=== PATIENT | male | born 1955 | race Caucasian/White ===

== ENCOUNTER 2018-06-30 22:30 | Observation (INO) | payer MEDICAID, SELFPAY ==
[2018-06-30 22:32] VITALS: BP 137/65; PULSE 69; RESP 15; TEMP 36.8; BMI 32.8
--- NOTE | 2018-06-30 23:05 | ED.VISSUMM ---
- ER Visit Summary Date of Service: 06/30/18 Chief Complaint: Accidental administration of insulin History of Present Illness: The patient is a 62 M here with spouse after accidental administration of short acting insulin 10 PM, 1 hour ago. Patient on proceed with a long-acting of 50 units at night, takes NovoLog sliding scale 2-4 units before each meal. Spouse accidentally gave short acting instead of long-acting. His last meal was at 6:30 PM. There was no sliding scale given at that time. After coming emergency department, came nausea and sweaty. No tremors. Diabetic for last 20 years. Physical Examination: General: Alert and oriented ?3, no acute distress, mild clammy skin HEENT: Normocephalic, atraumatic. Moist mucosa membranes Neck: supple, nontender. Cardiovascular: Regular rate and rhythm, no murmurs Respiratory: Normal breath sounds, symmetric, no distress Abdomen: Soft, nontender, nondistended Extremities: Nontender, no edema, pulses intact ?4 Neuro: no focal neurological deficits. Test Results: Blood glucose: 29 CBC, BMP pending Emergency Department Course and Treatment: Patient was given 2 juices after findings of blood glucose. With the administration of medications only an hour ago, medication not peak. Order for Glucovance subcu 1 mg along with IV D50 after was established. He will have frequent glucose rechecks. Regular meal will be ordered. He does not take any oral medications. Patient monitored given oral fluids, p.o. meal with a sandwich, multiple recheck and continued to trend down. Last check was 47, given additional D50 along was started on D10 drip. Spent over 3 hours in the emergency department try to control his glucose, however it continues to trend down. He is now on oral medications. With persistent hypoglycemia do feel now he will require inpatient management. Spoke with Dr. Kline hospitalist who agrees. He will be placed in ICU for close monitoring. Treatment Plan: [] Disposition: Admission Impression: 1. Persistent hypoglycemia 2. Accidental insulin administration This note was generated with [employer] software. It may contain incorrect words, spelling, and punctuation that were not noted in review of the chart prior to signing ED Disposition - Plan for ED Patient: Disposition: Acute Care Hospital [facility] Chief Complaint: General Illness Diagnosis: Hypoglycemia, Accidental medication administration
[2018-06-30] MEDS: Dextrose 50%-Water 25 GM/50 ML DISP.SYRIN IV (23:07)
--- NOTE | 2018-06-30 23:08 | ED.DCSUM_ITS ---
- ER Visit Summary Date of Service: 06/30/18 Chief Complaint: Accidental administration of insulin History of Present Illness: The patient is a 62 M here with spouse after accidental administration of short acting insulin 10 PM, 1 hour ago. Patient on proceed with a long-acting of 50 units at night, takes NovoLog sliding scale 2-4 units before each meal. Spouse accidentally gave short acting instead of long-acting. His last meal was at 6:30 PM. There was no sliding scale given at that time. After coming emergency department, came nausea and sweaty. No tremors. Diabetic for last 20 years. Physical Examination: General: Alert and oriented ?3, no acute distress, mild clammy skin HEENT: Normocephalic, atraumatic. Moist mucosa membranes Neck: supple, nontender. Cardiovascular: Regular rate and rhythm, no murmurs Respiratory: Normal breath sounds, symmetric, no distress Abdomen: Soft, nontender, nondistended Extremities: Nontender, no edema, pulses intact ?4 Neuro: no focal neurological deficits. Test Results: Blood glucose: 29 CBC, BMP pending Emergency Department Course and Treatment: Patient was given 2 juices after findings of blood glucose. With the administration of medications only an hour ago, medication not peak. Order for Glucovance subcu 1 mg along with IV D50 after was established. He will have frequent glucose rechecks. Regular meal will be ordered. He does not take any oral medications. Patient monitored given oral fluids, p.o. meal with a sandwich, multiple recheck and continued to trend down. Last check was 47, given additional D50 along was started on D10 drip. Spent over 3 hours in the emergency department try to control his glucose, however it continues to trend down. He is now on oral medications. With persistent hypoglycemia do feel now he will require inpatient management. Spoke with Dr. Kline hospitalist who agrees. He will be placed in ICU for close monitoring. Treatment Plan: [] Disposition: Admission Impression: 1. Persistent hypoglycemia 2. Accidental insulin administration This note was generated with [employer] software. It may contain incorrect words, spelling, and punctuation that were not noted in review of the chart prior to signing ED Disposition - Plan for ED Patient: Disposition: Acute Care Hospital [facility] Chief Complaint: General Illness Diagnosis: Hypoglycemia, Accidental medication administration
[2018-06-30] MEDS: Glucagon 1 MG/ML Syringe SC (23:10)
[2018-06-30 23:30] VITALS: BP 126/63; PULSE 53; RESP 15; O2SAT 96
[2018-07-01] VITALS (14 sets, daily range): BP systolic 117–160; BP diastolic 50–86; PULSE 39–72; RESP 10–16; TEMP 36.2–36.6; O2SAT 95–100; BMI 33.2
[2018-07-01 01:05] LABS: Bedside Glucose 29 mg/dL (70-110)
[2018-07-01 01:05] LABS: Bedside Glucose 137 mg/dL (70-110)
[2018-07-01 01:06] LABS: Bedside Glucose 171 mg/dL (70-110)
[2018-07-01 01:06] LABS: Bedside Glucose 92 mg/dL (70-110)
[2018-07-01 01:06] LABS: Bedside Glucose 151 mg/dL (70-110)
[2018-07-01 01:06] LABS: Bedside Glucose 104 mg/dL (70-110)
[2018-07-01] MEDS: Dextrose 50%-Water 25 GM/50 ML DISP.SYRIN IV ×2 (01:08→02:17)
[2018-07-01 01:56] LABS: Bedside Glucose 96 mg/dL (70-110)
[2018-07-01 01:56] LABS: Bedside Glucose 75 mg/dL (70-110)
--- NOTE | 2018-07-01 02:25 | PCM.HP.STD ---
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 (3) HTN (hypertension) Status: Chronic Qualifiers: Hypertension type: essential hypertension Qualified Code(s): I10 - Essential (primary) hypertension (4) Chronic back pain Status: Chronic Qualifiers: Back pain location: low back pain Back pain laterality: unspecified Sciatica presence: unspecified whether sciatica present Qualified Code(s): M54.5 - Low back pain; G89.29 - Other chronic pain (5) Neuropathy Status: Chronic (6) Anxiety and depression Status: Chronic (7) Obesity Status: Chronic Qualifiers: Obesity type: due to excess calories Obesity classification: adult class 1 (BMI 30 - 34.9) (8) Former tobacco use Status: Chronic History of Present Illness Date of Admission: 07/01/18 Chief Complaint: Accidental insulin error The patient is a 62 y/o M w/ PMHx: Diabetes mellitus type II w/ severe neuropathy, HTN, Obesity, Anxiety and Depression, HTN, Chronic Lumbar Back Pain, Former Tobacco use who presents to the [facility] ED on 07/01/18 with history of accidental self administration 45 units short-acting insulin at 10 pm on 06/30/18 instead of his long-acting insulin. He notes his girlfriend accidentally handed him his short acting insulin pen and he dosed himself 45 units believing that it was his insulin degludec. Following administration he noted onset nausea without emesis, mild lightheadedness and dizziness. He contacted his nurse who recommended he present to the ED for evaluation. In the ED work-up included T 98.2, heart rate 69, BP 137/65, respiratory rate 15, 96% on room air, CBC with WBC 14.7, heme globin 12.2, platelet 151 with left shift, pending BMP, blood sugar trends initially 29-->137-->171-->151-->104-->92-->75-->96-->47-->116 noted continuous hypoglycemia despite serial administrations of dextrose amps and eventually patient was placed on percent dextrose. Given ongoing hypoglycemia despite greater than 2 hour timeline and regimen administration decision to admit to the ICU for close serial blood sugar monitoring and to continue on dextrose. CBC and BMP were not obtained upon the patient initial ED presentation with CBC resulted as noted and BMP pending. Past Medical History Past Medical History (Chronic Problems): Chronic Problems Diabetes mellitus, type II (Chronic) HTN (hypertension) (Chronic) Chronic back pain (Chronic) Neuropathy (Chronic) Anxiety and depression (Chronic) Obesity (Chronic) Former tobacco use (Chronic) Allergies No Known Allergies Allergy (Verified 06/30/18 22:35) Home Medications: Ambulatory Orders Medication Instructions Recorded Amitriptyline HCl [Elavil] 25 mg PO QHS 07/01/18 Amlodipine [Norvasc] mg PO DAILY 07/01/18 Cyanocobalamin (Vitamin B-12) 5,000 mcg PO DAILY 07/01/18 [Vitamin B12] Insulin Aspart [Novolog Flexpen units SC TIDCM 07/01/18 ([facility])] Insulin Degludec [Tresiba 50 unit SQ QHS 07/01/18 Flextouch U-100] Lisinopril [Zestril] 40 mg PO DAILY 07/01/18 Meloxicam [Mobic] 7.5 mg PO DAILY 07/01/18 Metformin HCl [Metformin HCl ER] 1,000 mg PO BID 07/01/18 Pregabalin [Lyrica] 150 mg PO BID 07/01/18 Sertraline HCl [Zoloft] 125 mg PO DAILY 07/01/18 Surgical History: - - Cataract surgery, lumbar back surgery remotely. Psychiatric History: Anxiety, Depression Lives: Spouse/ Significant Other Smoking Status: Former smoker - Patient quit tobacco cigarette usage in 1976. Tobacco Use: Non-smoker Alcohol: None Drugs: None - *Family History Maternal History Items: Diabetes Paternal History Items: Diabetes Review of Systems Constitutional: Reports: Malaise, Weakness, Fatigue. Denies: Chills, Fever, Weight Change HEENT: Denies: Head Aches, Sinus Congestion, Sinus Drainage Cardiovascular: Reports: Light Headedness. Denies: Chest Pain, Palpitations Respiratory: Denies: Cough, Shortness of breath at rest, Sputum production Gastrointestinal: Reports: Nausea. Denies: Abdominal Pain, Vomiting Genitourinary: Denies: Dysuria Musculoskeletal: Reports: Back Pain. Denies: Joint Pain, Joint Tenderness Skin: Denies: Rash, Wounds Neurological: Denies: Numbness, Tingling, Focal weakness Psychiatric: Reports: Anxiety, Depression. Denies: Homicidal Ideations, Suicidal Ideations Hematologic/ Lymphatic: Denies: Easy Bruising, Easy Bleeding VTE Information - Inpt Only VTE Present on Admission: No VTE Mechan Device Prophylaxis: SCD's VTE Pharm Prophylaxis ordered?: Yes Patient Problems: Active and Suspected Problems Hypoglycemia (Acute) Subjective: Seated upright in ED bed, fatigued appearing, no acute distress. He notes improved since initial ED presentation. Objective: Physical Examination: General: awake, alert, oriented x 3 and cooperative, seated upright in the ED bed in no apparent distress. Skin: normal color, turgor, no icterus, cyanosis. HEENT: AT/NC, EOMI, PERRLA, mildly dry MM, lacking dentition, no carotid bruits or JVD noted. Lungs: CTA bilaterally, moderate effort, mild decrease BL bases, no rales, ronchi or wheezing. Heart: Regular rate and rhythm; no gallop, rub audible. Abdomen: soft, obese, NTTP, ND, normal BS, no HSM. Extremities: no cyanosis, clubbing, or edema. Neurological: patient awake, alert, oriented x 3; cognitive function intact; pupils equally reactive to light and accomodation; cranial nerves II-XII grossly normal, moving all 4 extremities, no focal deficits, strength mildly to moderately globally decreased secondary to acute presentation. Psychiatric: affect appears normal, mildly fatigued, no acute evidence of depressive or anxiety feelings. - Physical Exam Vital Signs Temp Pulse Resp BP Pulse Ox 98.2 F 69 14 136/83 H 96 06/30/18 22:32 07/01/18 01:36 07/01/18 01:36 07/01/18 01:36 07/01/18 01:36 Oxygen Delivery Method Room Air Weight: 235 lb Body Mass Index (BMI) 32.8 Finger Stick Blood Glucose 96 POC Glucose 07/01/18 07/01/18 07/01/18 01:35 01:02 00:40 POC Glucose 96 75 92 07/01/18 07/01/18 06/30/18 00:24 00:05 23:41 POC Glucose 104 151 H 171 H 06/30/18 06/30/18 23:20 22:54 POC Glucose 137 H 29 L* Assessment/Plan All Active Problems Hypoglycemia (Acute) The patient is a 62 y/o M w/ PMHx: Diabetes mellitus type II w/ severe neuropathy, HTN, Obesity, Anxiety and Depression, HTN, Chronic Lumbar Back Pain, Former Tobacco use who presents to the [facility] ED on 07/01/18 with history of accidental self administration 45 units short-acting insulin at 10 pm on 06/30/18 instead of his long-acting insulin w/ onset nausea without emesis, mild lightheadedness and dizziness. (1) Hyperglycemia with Diabetes mellitus type 2: Secondary to error in dosing short-acting regimen instead of his usual q HS long-acting regimen. Given ongoing hypoglycemia despite dextrose administration w/ trend 29-->137-->171-->151-->104-->92-->75-->96-->47-->116, transitioned in the ED to 10% dextrose, will admit to the ICU, continue dextrose administration, obtain serial BS checks and once remain improved transition 15-30 to q hourly and once appropriate attempt to de-escalate dextrose drip. In the interim will allow liberal regular diet. Nutrition consulted for education and teaching. ICU physician consulted. (2) Hypertension: Continue home regimen including Norvasc, lisinopril, PRN hydralazine. (3) Anxiety and depression: Continue home Zoloft regimen. (4) Chronic lumbar back pain: Continue home Mobic, Lyrica regimen. (5) Diabetic neuropathy: Severe, continue home Elavil, Mobic, Lyrica regimen (6) Obesity: Weight loss and lifestyle changes encouraged. (7) GERD: Famotidine. (8) DVT prophylaxis: SCDs, heparin given BMP pending upon presentation but if appropriate consideration for transition to Lovenox. Code Visit Inpatient E&M: 79710 Init Hosp L3
[2018-07-01 02:26] LABS: Bedside Glucose 47 mg/dL (70-110)
[2018-07-01] MEDS: Dextrose 10%-Water 250 ML 100 ML IV ×2 (02:30→05:03)
[2018-07-01 02:41] LABS: Bedside Glucose 116 mg/dL (70-110)
[2018-07-01 03:12] LABS: White Blood Count 14.7 K/mm3 (4.4-11.0)
[2018-07-01 03:13] LABS: Absolute Neutrophil Count 11.5 X10^3/uL (2.0-7.7); Basophil% 0.2 % (0-1); Eosinophils% 1.6 % (0-5); Hematocrit 37.2 % (40-54); Hemoglobin 12.2 g/dl (13.0-16.5); Lymphocyte % 12.3 % (19-41); Mean Corp Hgb Conc 32.8 g/gl (32-36); Mean Corpuscular Hgb 29.5 pg (27.0-32.0); Mean Corpuscular Volume 89.9 fL (80-94); Monocyte% 7.3 % (0-10); Neutrophil # 11.49 X10^3/uL (2.7-7.7); Neutrophil % 78.3 % (47-70); POSITIVE COUNT NO; POSITIVE DIFFERENTIAL NO; POSITIVE MORPHOLOGY NO; Platelet Count 151 K/mm3 (150-450); RBC Distribution Width CV 13.1 % (11.6-14.6); RBC Distribution Width SD 42.2 fl (35.1-43.9); Red Blood Count 4.14 M/mm3 (4.6-6.2)
[2018-07-01 03:14] LABS: Basophil# 0.03 X10^3/uL; Eosinophil# 0.24 X10^3/uL; Monocyte# 1.07 X10^3/uL
[2018-07-01 03:17] LABS: Anion Gap 10 (5-15); BUN 24 mg/dL (7-18); BUN/Creat Ratio 24.6 RATIO (10-20); Calcium,Total 8.4 mg/dL (8.5-10.1); Chloride 108 mmol/L (98-107); Creatinine, Serum 0.98 mg/dL (0.70-1.30); EST Glomerular Filtration Rate 83 mL/min (>60); Est Glom Filt Rate - Afr Amer 101 mL/min (>60); Estimated Creatinine Clearance 85.37 ml/min; Glucose 84 mg/dL (74-106); Potassium 3.8 mmol/L (3.5-5.1); Sodium Level 146 mmol/L (136-145)
[2018-07-01 03:36] LABS: Bedside Glucose 84 mg/dL (70-110)
--- NOTE | 2018-07-01 05:45 | EKG12_ITS ---
Test Reason : BRADYCARDIA Blood Pressure : / mmHG Vent. Rate : 051 BPM Atrial Rate : 066 BPM P-R Int : 000 ms QRS Dur : 094 ms QT Int : 454 ms P-R-T Axes : 038 -04 032 degrees QTc Int : 418 ms Sinus rhythm with 2nd degree A-V block (Mobitz I) Inferior infarct , age undetermined Abnormal ECG No previous ECGs available Confirmed by GÓMEZ ROACH ([id number]), mapping editor CORNELIO RIVERA ([id number] on 07/09/2018 2:56:57 PM Referred By: JAREN Confirmed By:GÓMEZ ROACH
[2018-07-01] MEDS: Heparin Injection (Vial) 5,000 UNIT/ML VIAL 5000 UNIT SC (06:02)
[2018-07-01 06:36] LABS: Bedside Glucose 85 mg/dL (70-110)
[2018-07-01 06:36] LABS: Bedside Glucose 72 mg/dL (70-110)
[2018-07-01 06:36] LABS: Bedside Glucose 91 mg/dL (70-110)
--- NOTE | 2018-07-01 08:08 | PCM.PN.HOSP ---
Patient Problems: Active and Suspected Problems Hypoglycemia (Acute) Subjective: No new complaints. Vitals/I&O's: Vital Signs Temp Pulse Resp BP Pulse Ox 36.6 C 45 L 16 159/75 H 100 07/01/18 08:00 07/01/18 08:00 07/01/18 08:00 07/01/18 08:00 07/01/18 08:00 Oxygen Delivery Method Room Air Weight: 108 kg Body Mass Index (BMI) 33.2 Finger Stick Blood Glucose 116 Intake and Output for Last 24 Hours 06/29/18 06/30/18 07/01/18 23:59 23:59 23:59 Intake Total 239 / 239 Balance 239 / 239 General: Alert, No apparent distress HEENT: Atraumatic, Normocephalic Neck: No Nodes, Thyroid Normal Size and Texture Lungs: Clear to auscultation, Normal air movement, No rhonchi, No wheeze Cardiovascular: Regular rate, Regular Rhythm, Normal S1, Normal S2, No murmurs Abdomen: Bowel Sounds Present, Soft, Non Tender, Non-Distended Laboratory Results 07/01/18 02:54: WBC 14.7 H, RBC 4.14 L, Hgb 12.2 L, Hct 37.2 L, MCV 89.9, MCH 29.5, MCHC 32.8, RDW 13.1, RDW Differential 42.2, Plt Count 151, MPV 10.0, Immature Gran % (Auto) 0.300, Neut % (Auto) 78.3 H, Lymph % (Auto) 12.3 L, Branch % (Auto) 7.3, Eos % (Auto) 1.6, Baso % (Auto) 0.2, Absolute Neuts (auto) 11.5 H, Absolute Lymphs (auto) 1.80, Total Counted Not Reportable 07/01/18 02:54: Sodium 146 H, Potassium 3.8, Chloride 108 H, Carbon Dioxide 28.0, Anion Gap 10, BUN 24 H, Creatinine 0.98, Estim Creat Clear Calc 85.37, Est GFR (MDRD) Af Amer 101, Est GFR (MDRD) Non-Af 83, BUN/Creatinine Ratio 24.6 H, Glucose 84, Calcium 8.4 L 07/01/18 02:54: Magnesium Pending 07/01/18 03:32: POC Glucose 84 07/01/18 04:24: POC Glucose 72 07/01/18 04:55: MRSA (PCR) Pending 07/01/18 05:24: POC Glucose 85 07/01/18 06:00: POC Glucose 91 Current Medications Al Hydroxide/Mg Hydroxide (Mylanta Ii) 30 ml PO Q6H PRN PRN PRN Reason: Gastric burning Amitriptyline HCl (Elavil) 25 mg PO QHS [facility] Famotidine (Pepcid) 20 mg PO BID [facility] Heparin Sodium (Porcine) (Heparin Na) 5,000 unit SC Q8 [facility] Last Admin: 07/01/18 06:02 Dose: 5,000 unit Lisinopril (Zestril) 40 mg PO DAILY [facility] Magnesium Hydroxide (Milk Of Magnesia) 30 ml PO DAILY PRN PRN PRN Reason: Constipation Meloxicam (Mobic) 7.5 mg PO DAILY [facility] Ondansetron HCl (Zofran) 4 mg IV Q8H PRN PRN PRN Reason: NAUSEA Pregabalin (Lyrica) 150 mg PO BID [facility] Promethazine HCl (Phenergan) 12.5 mg IV Q6H PRN PRN PRN Reason: NAUSEA/VOMITING Sertraline HCl (Zoloft) 125 mg PO DAILY [facility] Sodium Chloride () 5 - 30 ml IV UD PRN PRN Reason: SALINE FLUSH Medical Necessity - Tobacco Use Smoking Status: Former smoker Tobacco Use: Non-smoker Assessment/Plan All Active Problems Hypoglycemia (Acute) 1. hypoglycemia iatrogenic from inadvertent administration of 45 units of short acting instead of basal insulin had glucose of 47 at one point stable on D10, which I have ordered to be d/c'd if BGT remain stable after D10 stopped, patient can be discharged
--- NOTE | 2018-07-01 08:11 | PCM.DC ---
- Discharge Diagnoses Current Active Problems: Current Active and Chronic Problems Hypoglycemia (Acute) Diabetes mellitus, type II (Chronic) HTN (hypertension) (Chronic) Chronic back pain (Chronic) Neuropathy (Chronic) Anxiety and depression (Chronic) Obesity (Chronic) Former tobacco use (Chronic) You will use the following diet at home:: Calorie/Carbohydrate Controlled (specify 1200, 1400, etc) - 1800 Kcal/day Your food should be the consistency of: Regular Your liquids should be the consistency of: Regular/Thin Discharge Activity: Return to Normal Activity Call your doctor if you observe: - - low blood sugars Allergies/Adverse Reactions: Allergies No Known Allergies Allergy (Verified 06/30/18 22:35) Medications to take at Discharge Amitriptyline HCl [Elavil] 25 mg PO QHS 07/01/18 Cyanocobalamin (Vitamin B-12) [Vitamin B12] 5,000 mcg PO DAILY 07/01/18 Insulin Aspart [Novolog Flexpen] units SC TIDCM 07/01/18 Insulin Degludec [Tresiba Flextouch U-100] 50 unit SQ QHS 07/01/18 Lisinopril [Zestril] 40 mg PO QHS 07/01/18 Metformin HCl [Metformin HCl ER] 1,000 mg PO BID 07/01/18 Pregabalin [Lyrica] 150 mg PO BID 07/01/18 Sertraline HCl [Zoloft] 125 mg PO DAILY 07/01/18 Primary Care Physician: Kala Patterson,Out of [NON-STAFF] - Within 2 Weeks Test Results: Test results from this visit will be discussed in further detail at your follow-up appointment, if applicable.
--- NOTE | 2018-07-01 08:12 | PCM.DC.SUM ---
Discharge Date and Diagnosis - Problem List Patient Problems: Active and Suspected Problems Hypoglycemia (Acute) Date of Admission: 07/01/18 Date of Discharge: 07/01/18 - Primary Discharge Diagnosis Active and Suspected Problems Hypoglycemia (Acute) - Secondary Discharge Diagnosis Chronic Problems Diabetes mellitus, type II (Chronic) HTN (hypertension) (Chronic) Chronic back pain (Chronic) Neuropathy (Chronic) Anxiety and depression (Chronic) Obesity (Chronic) Former tobacco use (Chronic) Hospital Course and Treatment Operations: None Procedures: None Summary of Care Provided: The patient is a 62 year old M who inadvertently gave himself 45 units of short acting insulin instead of his basal insulin. Patient's significant other gave him the wrong pain which he to 45 units only to find out shortly afterwards that it was a short acting. Patient presented to the emergency room and did have blood sugar 45. Patient was put on a D10 glucose drip. Patient otherwise feels well. The first time that this is ever happened before. Patient is a D10 drip will be discontinued and the patient remains stable then he can discharged. [] Discharge Diet: 1800 Calorie Control Diet Discharge Activity: Return to Normal Activity Call your doctor if you observe: - - low blood sugars Home Medications: Medications to take at Discharge Amitriptyline HCl [Elavil] 25 mg PO QHS 07/01/18 Cyanocobalamin (Vitamin B-12) [Vitamin B12] 5,000 mcg PO DAILY 07/01/18 Insulin Aspart [Novolog Flexpen] units SC TIDCM 07/01/18 Insulin Degludec [Tresiba Flextouch U-100] 50 unit SQ QHS 07/01/18 Lisinopril [Zestril] 40 mg PO QHS 07/01/18 Metformin HCl [Metformin HCl ER] 1,000 mg PO BID 07/01/18 Pregabalin [Lyrica] 150 mg PO BID 07/01/18 Sertraline HCl [Zoloft] 125 mg PO DAILY 07/01/18 Primary Care Physician: Kala Patterson,Out of [NON-STAFF] - Within 2 Weeks Disposition: Home Minutes spent on discharge:: 28 Patient Condition:: Good Medical Necessity - Tobacco Use Smoking Status: Former smoker Tobacco Use: Non-smoker Meaningful Use Info Meaningful Use Diagnoses (Choose all that apply): None applicable Code Visit OBSV E&M: 45233 Observation care discharge
[2018-07-01 08:23] LABS: M R Staph aureus DNA By PCR Negative (Negative); Probe Check PASS; Specimen Processing Control PASS
[2018-07-01 08:40] LABS: Bedside Glucose 117 mg/dL (70-110)
[2018-07-01 08:40] LABS: Bedside Glucose 111 mg/dL (70-110)
[2018-07-01 08:40] LABS: Bedside Glucose 111 mg/dL (70-110)
[2018-07-01 08:40] LABS: Bedside Glucose 119 mg/dL (70-110)
[2018-07-01] MEDS: Meloxicam 7.5 MG Tablet PO (11:24)
[2018-07-01] MEDS: Famotidine 20 MG Tablet PO (11:24)
[2018-07-01] MEDS: Sertraline 50 MG Tablet 125 MG PO (11:25)
[2018-07-01] MEDS: Lisinopril 40 MG Tablet PO (11:25)
[2018-07-01] MEDS: Pregabalin 75 MG Capsule 150 MG PO (11:29)
[2018-07-01 11:36] LABS: Bedside Glucose 133 mg/dL (70-110)
[2018-07-01 11:36] LABS: Bedside Glucose 178 mg/dL (70-110)
[2018-07-01 13:36] LABS: Bedside Glucose 150 mg/dL (70-110)
[2018-07-01 13:46] LABS: Bedside Glucose 192 mg/dL (70-110)
== END 2018-07-01 14:45 | disposition home or self-care (01) ==
LOC: ED 07-01 02:34 → ICU 07-01 04:08
PROVIDERS: Admitting Provider Family Medicine; Emergency Provider Emergency Medicine
DX: T38.3X1A Poisoning by insulin and oral hypoglycemic [antidiabetic] drugs, accidental (unintentional), initial encounter (principal); E09.649 Drug or chemical induced diabetes mellitus with hypoglycemia without coma; E11.649 Type 2 diabetes mellitus with hypoglycemia without coma; Z87.891 Personal history of nicotine dependence; I10 Essential (primary) hypertension; Z79.4 Long term (current) use of insulin; Z79.899 Other long term (current) drug therapy; G89.29 Other chronic pain; M54.5 Low back pain; F32.9 Major depressive disorder, single episode, unspecified; F41.9 Anxiety disorder, unspecified; E11.40 Type 2 diabetes mellitus with diabetic neuropathy, unspecified; E66.9 Obesity, unspecified; Z68.33 Body mass index [BMI] 33.0-33.9, adult; Z71.3 Dietary counseling and surveillance; E11.65 Type 2 diabetes mellitus with hyperglycemia
CPT/HCPCS: 80048; 82962; 83735; 85025; 87641; 93005; 96361; 96372; 96374; 96376; 97802; 99218; 99285; A4216; G0378; J1610

== ENCOUNTER 2019-03-15 22:01 | Emergency (ER) | payer MEDICAID, SELFPAY ==
[2019-03-15 22:02] VITALS: BP 140/75; PULSE 73; RESP 18; TEMP 36.6; O2SAT 99; BMI 32.9
--- NOTE | 2019-03-15 22:30 | CT_ITS ---
STUDY: CT BRAIN WITHOUT CONTRAST REASON FOR EXAM: Male, 63 years old. Trauma RADIATION DOSAGE (If Supplied By Facility): CTDIvol = ( 44.99 ) mGy, DLP = ( 863.60 ) mGycm TECHNIQUE: Transaxial CT imaging of the brain was performed without administration of intravenous contrast material. Individualized dose optimization techniques were used for this CT. COMPARISON: No relevant priors. FINDINGS: Left posterior scalp soft tissue swelling/hematoma. Carotid and vertebral artery calcifications. Nonspecific thickening of the inferior aspect of the right ear. Normal calvarium. There is mild cerebral atrophy with widening of the extra-axial spaces and ventricular dilatation. There are areas of decreased attenuation within the white matter tracts of the supratentorial brain, consistent with microvascular disease changes. Normal basal ganglia and thalami. Normal brainstem. Normal cerebellum. There is no intracranial hemorrhage. There are no findings of an acute ischemic infarction. Normal visualized paranasal sinuses. CT/Brain/Head without Contrast IMPRESSION: Chronic involutional and white matter changes. No acute territorial infarct or intracranial hemorrhage. If patient's symptomology persists or there is continuing clinical concern MRI or follow-up CT scan can be performed. Left posterior scalp soft tissues:/Hematoma. Nonspecific thickening of the inferior aspect of the right ear. Electronically Signed: Danny Gannon, at 23:26 EDT Tel , Service support ,
--- NOTE | 2019-03-15 22:30 | ED.VISSUMM ---
- ER Visit Summary Date of Service: 03/15/19 Chief Complaint: Head injury History of Present Illness: The patient is a 63 M who presents with a head injury that occurred today. Patient states she was standing on his mower when he lost his balance and fell. Patient states he hit his head on the concrete driveway. states patient had a questionable 1 second loss of consciousness. states he was confused after the fall. Patient complains of dull mild headache. Patient denies any paresthesias or weakness. Patient denies any visual changes. Patient denies any nausea or vomiting. Patient is not on any anticoagulants. Physical Examination: Vital signs are stable. Patient is afebrile. Patient is in no acute distress. Pupils are equal, round, and reactive to light bilaterally. Extraocular muscles are intact. There is some right periorbital edema and infraorbital ecchymosis. There is no bony crepitance or step-off. Oral mucosa is pink and moist. Neck is supple. Trachea is midline. There is no JVD noted. Heart was regular rate and rhythm. Lungs are clear and equal bilateral. Abdomen is soft. Bowel sounds are normal. There is no tenderness. Cranial nerves II through XII are intact. Strength is 5/5 bilaterally. There are no sensory deficits noted. There is tenderness and a hematoma over the left occipital area. There is no bony crepitance or step-off noted. Test Results: CT scan of the brain was obtained and was normal. Emergency Department Course and Treatment: Patient was given head injury instructions. Patient was instructed to follow-up with his primary care physician in 5 to 7 days. Patient and family understood and were agreeable with the plan. All questions were answered. Disposition: Discharge home Impression: Concussion This note was generated with [employer] software. It may contain incorrect words, spelling, and punctuation that were not noted in review of the chart prior to signing ED Disposition - Plan for ED Patient: Disposition: Home or Assisted Living Diagnosis: Concussion Instructions: ED Concussion Referrals: Town Doctor,Out of [Primary Care Provider] - 3-5 Days
--- NOTE | 2019-03-15 22:33 | ED.DCSUM_ITS ---
- ER Visit Summary Date of Service: 03/15/19 Chief Complaint: Head injury History of Present Illness: The patient is a 63 M who presents with a head injury that occurred today. Patient states she was standing on his mower when he lost his balance and fell. Patient states he hit his head on the concrete dr araujo. states patient had a questionable 1 second loss of consciousness. states he was confused after the fall. Patient complains of dull mild headache. Patient denies any paresthesias or weakness. Patient denies any visual changes. Patient denies any nausea or vomiting. Patient is not on any anticoagulants. Physical Examination: Vital signs are stable. Patient is afebrile. Patient is in no acute distress. Pupils are equal, round, and reactive to light bilaterally. Extraocular muscles are intact. There is some right periorbital edema and infraorbital ecchymosis. There is no bony crepitance or step-off. Oral mucosa is pink and moist. Neck is supple. Trachea is midline. There is no JVD noted. Heart was regular rate and rhythm. Lungs are clear and equal bilateral. Abdomen is soft. Bowel sounds are normal. There is no tenderness. Cranial nerves II through XII are intact. Strength is 5/5 bilaterally. There are no sensory deficits noted. There is tenderness and a hematoma over the left occipital area. There is no bony crepitance or step-off noted. Test Results: CT scan of the brain was obtained and was normal. Emergency Department Course and Treatment: Patient was given head injury instructions. Patient was instructed to follow-up with his primary care physici an in 5 to 7 days. Patient and family understood and were agreeable with the plan. All questions were answered. Disposition: Discharge home Impression: Concussion This note was generated with Serious Parody dictation software. It may contain incorrect words, spelling, and punctuation that were not noted in review of the chart prior to signing ED Disposition - Plan for ED Patient: Disposition: Home or Assisted Living Diagnosis: Concussion Instructions: ED Concussion Referrals: Town Doctor,Out of [Primary Care Provider] - 3-5 Days
[2019-03-16 00:02] VITALS: BP 136/72; PULSE 75; RESP 18; O2SAT 96
== END 2019-03-16 00:02 | disposition home or self-care (01) ==
PROVIDERS: Emergency Provider Emergency Medicine
DX: S06.0X0A Concussion without loss of consciousness, initial encounter (principal); W01.0XXA Fall on same level from slipping, tripping and stumbling without subsequent striking against object, initial encounter; Y93.89 Activity, other specified; Y92.9 Unspecified place or not applicable; E11.40 Type 2 diabetes mellitus with diabetic neuropathy, unspecified; Z79.4 Long term (current) use of insulin; Z79.84 Long term (current) use of oral hypoglycemic drugs; Z79.899 Other long term (current) drug therapy
CPT/HCPCS: 70450; 99282

== ENCOUNTER 2020-02-11 13:28 | Inpatient (IN) | payer MEDICAID, SELFPAY ==
[2020-02-11] VITALS (8 sets, daily range): BP systolic 126–148; BP diastolic 46–67; PULSE 33–45; RESP 13–19; TEMP 36.4–37.1; O2SAT 95–100; BMI 30.1; BMI 29.0
--- NOTE | 2020-02-11 13:43 | EKG12_ITS ---
Test Reason : BRADYCARDIA Blood Pressure : / mmHG Vent. Rate : 035 BPM Atrial Rate : 070 BPM P-R Int : 208 ms QRS Dur : 094 ms QT Int : 546 ms P-R-T Axes : 050 -09 039 degrees QTc Int : 416 ms Sinus rhythm with 2nd degree A-V block Abnormal ECG Confirmed by CHARLEY URRUTIA, RACHEL ([id number]), digital editor CORNELIO RIVERA ([id number]) on 02/17/2020 9:10:19 AM Referred By: CHEYANNE Confirmed By:PRIYANKA WHITEHEAD MD
--- NOTE | 2020-02-11 13:57 | ED.DCSUM_ITS ---
History of Present Illness Informant: Patient Narrative: Patient states that for the past several weeks he has been very dizzy and weak. States he has been seen some doctors at [facility] but is unsure what type of doctors they are but he states that he has been told he was probably having some mini strokes and is waiting to have an MRI. He is moving from [place] to here and states he is just felt so fatigued is been hard to do that. He also reports that for the past week he has been checking his heart rate and has been in 30s. He spoke with his doctors and they advised him to come in. He denies any sweating chest pain shortness of breath. He states he was recently told he had a heart murmur. <Ashkan Harris - Last Filed: 02/11/20 14:05> <Patricio Treviño - Last Filed: 02/11/20 21:16> Chief Complaint: Dizziness Past Medical History Surgical History: - - Cataract surgery, lumbar back surgery remotely. Smoking Status: Former smoker - Family History Maternal Family History: Reports: Diabetes Paternal Family History: Reports: Diabetes <Ashkan Harris - Last Filed: 02/11/20 14:05> <Patricio Treviño - Last Filed: 02/11/20 21:16> - Allergies and Home Meds Allergies/Adverse Reactions: Allergies No Known Allergies Allergy (Verified 02/11/20 13:32) Review of Systems General: Reports: Malaise. Denies: Chills, Fever, Sweats Eyes: Denies: Visual changes - bilaterally, Diplopia ENT: Denies: Rhinorrhea, Sore throat Cardiovascular: Denies: Chest pain, Palpitations Respiratory: Denies: Dyspnea, Cough, Dyspnea on exertion Gastrointestinal: Denies: Abdominal pain, Nausea, Vomiting, Diarrhea, Melena, Hematochezia Genitourinary: Denies: Dysuria, Hematuria, Frequency Musculoskeletal: Denies: Back pain, Extremity Pain Skin: Denies: Rash, Wounds Neurological: Denies: Headache, Weakness, Numbness <Ashkan Harris - Last Filed: 02/11/20 14:05> Physical Exam Vital Signs/Narrative: Vital Signs Temp Pulse Resp BP Pulse Ox 02/11/20 13:57 37 L 13 140/67 H 100 02/11/20 13:32 98.1 F 37 L 16 126/60 H 99 Inital Vital Signs reviewed: Yes General: Well nourished, Well developed, No Acute Distress Head: Normocephalic, Atraumatic Eyes: Perrl, EOMI ENT: Moist mucous membranes, No rhinorrhea Neck: Supple, Nontender Cardiovascular: Bradycardia, Murmur Respiratory: No distress, CTA bilaterally, Chest nontender Abdomen: Soft, Nontender, Nondistended, Normal bowel sounds Back: Nontender, Normal Inspection Extremities: Nontender, No edema Skin: Normal color, No rash Neurological: Alert, Oriented x3, Cranial nerves II-XII grossly intact, Normal Strength, Normal Sensation Psychological: Normal affect, Normal Mood <Ashkan Harris - Last Filed: 02/11/20 14:05> Vital Signs/Narrative: Vital Signs Temp Pulse Resp BP Pulse Ox 02/11/20 13:57 37 L 13 140/67 H 100 02/11/20 13:32 98.1 F 37 L 16 126/60 H 99 <Patricio Treviño - Last Filed: 02/11/20 21:16> Diagnostic/Tx/Re-eval - EKG Initial EKG Interpretation: - - EKG shows what appears to be a third-degree heart block at a rate of 35. No concerning features of ACS. - Medical Decision Making The patient had an EKG performed upon his arrival shows complete heart block. I went saw the patient he is not experiencing any chest pain or appearing ill at the moment. He was recently told he has a heart murmur. Basic labs will be obtained. I spoke immediately with Dr. Swain who is on-call for cardiology. Our plan would be to obtain an echocardiogram in addition to the labs and a chest x-ray and to admit for heart catheterization and pacemaker placement. Care of the patient will be turned over to the oncoming physician to ensure adequate and safe transition into the hospital. - Critical Care Time Critical care time (excluding procedures): 30-74 minutes - 35 min., Discussing w/Patient &/or Family/Trade Mark Attorney, Discussing w/Consultants, Arranging Admission or Transfer, Performing Direct Patient Care at Bedside <Ashkan Harris - Last Filed: 02/11/20 14:05> - Medical Decision Making Care of the patient was turned over to me. CBC, metabolic profile, and troponin were obtained and were essentially within normal limits. Portable chest x-ray was obtained. There is no acute cardiopulmonary process noted. This was interpreted by the radiologist and myself. Patient was resting comfortably on reevaluation. Echocardiogram was being performed. Case was discussed with the hospitalist. He will admit the patient to PCU. Patient understood and was agreeable with the plan. All questions were answered. <Patricio Treviño - Last Filed: 02/11/20 21:16> ED Disposition <Ashkan Harris - Last Filed: 02/11/20 14:05> <Patricio Treviño - Last Filed: 02/11/20 21:16> - Plan for ED Patient: Disposition: Acute Care Hospital [facility] Diagnosis: Third degree heart block
--- NOTE | 2020-02-11 14:00 | RAD_ITS ---
STUDY: X-RAY CHEST REASON FOR EXAM: Male, 64 years old. Patient states his HR is in the 30s -- reports dizziness and fatigue TECHNIQUE: Single AP portable view of the chest. COMPARISON: None. FINDINGS: EKG electrodes are seen. The lungs are clear and expanded. There is no demonstrated pleural abnormality. Normal size heart. Normal mediastinum and beatris. Normal visualized pulmonary arteries. Normal visualized aortic arch and descending thoracic aorta. There are diffuse degenerative changes of the visualized thoracic spine. There is degenerative osteoarthritis of the bilateral shoulders. There is no demonstrated abnormality of the visualized soft tissue structures of the upper abdomen. RAD/Chest 1 View (Portable) IMPRESSION: No acute abnormality is present. Electronically Signed: Aki Parrish, at 14:18 EDT , Service support ,
--- NOTE | 2020-02-11 14:03 | ECHOCS_ITS ---
Reason For Study: MURMUR Procedure This was a 2D Doppler, Color Flow transthoracic echocardiogram. The study was technically difficult. Due to body habitus. Contrast injection was performed. Exam performed portable in ED. Left Ventricle Moderate concentric left ventricular hypertrophy. The estimated ejection fraction is 65 %. Stage 1 diastolic dysfunction. No regional wall motion abnormalities noted. Right Ventricle Moderately dilated right ventricle. Normal systolic function. Atria The left atrium is mildly enlarged. Normal right atrium. Normal atrial septum. Mitral Valve The mitral valve is structurally normal. No prolapse or stenosis seen. Tricuspid Valve Normal tricuspid valve. Trivial tricuspid valve insufficiency. Unable to estimate RV systolic pressure due to insufficient tricuspid regurgitant envelope. Aortic Valve Trisinus/trileaflet aortic valve. 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 Moderate focal aortic valve thickening. Moderate diffuse aortic valve thickening. Moderate restriction of the aortic valve. Moderate aortic stenosis. Peak aortic valve gradient 56 mmHg. Mean aortic valve gradient 30 mmHg. Calculated aortic valve area (continuity equation) is 1.2 cm2. Pulmonic Valve The pulmonic valve is not well visualized. Great Vessels Normal aortic root. Normal arch. Normal inferior vena cava. Pericardium/Pleural No pericardial effusion. Medication Diluted definity 4.0ml given slow IV push to enhance endocardial definition. MMode/2D Measurements & Calculations LVIDd: 4.8 cm IVSd: 1.4 cm LVOT diam: 2.2 cm LVIDs: 2.7 cm LVPWd: 1.4 cm RVDd: 4.4 cm FS: 42.8 % LVOT area: 3.9 cm2 Ao root diam: 3.0 cm LAV(MOD-bp): 76.7 ml LA A4 area: 22.7 cm2 LAV(MOD-bp) Indexed: 35.1 ml/m2 LAV(MOD-sp2): 80.1 ml LAV(MOD-sp4): 72.4 ml LA dimension(2D): 4.1 cm RA A4 area: 14.9 cm2 Doppler Measurements & Calculations MV E max arthur: 94.4 cm/sec Lat Peak E' Arthur: 10.3 cm/sec Med Peak E' Arthur: 6.4 cm/sec MV A max arthur: 112.7 cm/sec E/E' lat: 9.2 E/E' med: 14.8 MV E/A: 0.84 Ao V2 max: 353.7 cm/sec LV V1 max: 98.4 cm/sec SV(LVOT): 121.6 ml Ao max P.2 mmHg LV V1 max P.9 mmHg Ao V2 mean: 248.7 cm/sec LV V1 mean P.5 mmHg Ao mean P.8 mmHg LV V1 mean: 76.9 cm/sec Ao V2 VTI: 104.8 cm LV V1 VTI: 31.4 cm LEA(I,D): 1.2 cm2 LEA(V,D): 1.1 cm2 PA V2 max: 100.2 cm/sec Interpretation Summary Moderate concentric left ventricular hypertrophy. The estimated ejection fraction is 65 %. Stage 1 diastolic dysfunction. Moderately dilated right ventricle. The left atrium is mildly enlarged. Trivial tricuspid valve insufficiency. Unable to estimate RV systolic pressure due to insufficient tricuspid regurgitant envelope. 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 Moderate restriction of the aortic valve. Moderate aortic stenosis. Peak aortic valve gradient 56 mmHg. Mean aortic valve gradient 30 mmHg. Calculated aortic valve area (continuity equation) is 1.2 cm2. The study was technically difficult. Contrast injection was performed. There is no comparison study available. Ordering Physician: Ashkan Harris Referring Physician: OTD Performed By: Jocelin Frank, CAMILLA, RVT
[2020-02-11 14:04] LABS: Absolute Lymphocyte Count 1.63 X10^3/uL (0.83-4.51); Absolute Neutrophil Count 6.2 X10^3/uL (2.0-7.7); Basophil# 0.04 X10^3/uL; Basophil% 0.5 % (0-1); Eosinophil# 0.32 X10^3/uL; Eosinophils% 3.6 % (0-5); Hematocrit 39.1 % (40-54); Hemoglobin 12.3 g/dL (13.0-16.5); Lymphocyte # 1.63 X10^3/ul (4.0); Lymphocyte % 18.5 % (19-41); Mean Corp Hgb Conc 31.5 g/dL (32-36); Mean Corpuscular Hgb 26.8 pg (27.0-32.0); Mean Corpuscular Volume 85.2 fL (80-94); Mean Platelet Vol. 10.8 fl (6.2-12.0); Monocyte# 0.62 X10^3/uL; Monocyte% 7.1 % (0-10); NRBC Flagged by Analyzer 0 % (0-5); Neutrophil # 6.16 X10^3/uL (2.7-7.7); Neutrophil % 70.1 % (47-70); Platelet Count 173 K/mm3 (150-450); RBC Distribution Width CV 15.6 % (11.6-14.6); RBC Distribution Width SD 48.4 fl (35.1-43.9); Red Blood Count 4.59 M/mm3 (4.6-6.2); White Blood Count 8.8 K/mm3 (4.4-11.0)
[2020-02-11 14:14] LABS: Prothrombin Time (Protime)PT. 12.6 SECONDS (11.7-14.9)
[2020-02-11 14:15] LABS: Partial Thromboplast Time 29.4 Seconds (24.1-36.2)
[2020-02-11 14:24] LABS: ALB/GLOB Ratio 1.1 RATIO (0.9-2.4); AST(SGOT) 31 U/L (15-37); Alanine Aminotransfer ALT/SGPT 30 U/L (16-61); Albumin, Serum 3.6 g/dL (3.2-5.0); Alkaline Phosphatase 101 U/L (45-117); Anion Gap 4 (5-15); BUN 24 mg/dL (7-18); BUN/Creat Ratio 26.5 RATIO (10-20); Calcium,Total 8.9 mg/dL (8.5-10.1); Chloride 107 mmol/L (98-107); EST Glomerular Filtration Rate 90 mL/min (>60); Est Glom Filt Rate - Afr Amer 109 mL/min (>60); Estimated Creatinine Clearance 90.64 ml/min; Globulin 3.4 g/dL (2.2-4.2); Glucose 88 mg/dL (74-106); Magnesium 1.9 mg/dL (1.6-2.6); Potassium 4.2 mmol/L (3.5-5.1); Sodium Level 141 mmol/L (136-145)
--- NOTE | 2020-02-11 15:40 | NURSING ---
PCU [facility]RD [facility] HEART BLOCK
--- NOTE | 2020-02-11 15:47 | HP.PCM_ITS ---
Problem List (1) Diabetes mellitus, type II Status: Chronic Qualifiers: Diabetes mellitus custodial insulin use: with termite treater helper use Diabetes mellitus complication status: with unspecified complications (2) HTN (hypertension) Status: Chronic Qualifiers: Hypertension type: essential hypertension Qualified Code(s): I10 - Essential (primary) hypertension (3) Chronic back pain Status: Chronic Qualifiers: Back pain location: low back pain Back pain laterality: unspecified Sciatica presence: unspecified whether sciatica present Qualified Code(s): M54.5 - Low back pain; G89.29 - Other chronic pain (4) Anxiety and depression Status: Chronic (5) Obesity Status: Chronic Qualifiers: Obesity type: due to excess calories Obesity classification: adult class 1 (BMI 30 - 34.9) (6) Third degree heart block Status: Acute History of Present Illness Date of Admission: 02/11/20 Chief Complaint: Weakness, dizziness. The patient is a 64 year old M with past medical history as mentioned above presented to the emergency room because of weakness and dizziness. Patient mentioned that over the last couple of weeks, he has been feeling more weak, fatigued associated with dizziness and lightheadedness. He mentioned that he has been checking his heart rate and it has been down to 30s. He denied syncope or presyncope. He denied chest pain, palpitation, shortness of breath. He had a history of type 2 diabetes mellitus which seemed to be under control with Tresiba and NovoLog 3 times daily as well as metformin. He had a history of hypertension which has been under control with Norvasc and lisinopril. He had a history of hyperlipidemia and he has been on statins. In the emergency department, his heart rate has been in the 30s, blood pressure stable. Routine blood work was unremarkable. EKG revealed third-degree AV block, no acute, changes. Troponin was negative. Serum electrolytes including potassium and magnesium were normal as well as calcium. Troponin was negative. LFT was unremarkable. Chest x-ray showed no acute findings. 2D echocardiogram done in the emergency department and it is pending at this time. He is being admitted for complete heart block and probably will need placement of permanent pacemaker. Past Medical History Past Medical History (Chronic Problems): Chronic Problems Diabetes mellitus, type II (Chronic) HTN (hypertension) (Chronic) Chronic back pain (Chronic) Neuropathy (Chronic) Anxiety and depression (Chronic) Obesity (Chronic) Former tobacco use (Chronic) Allergies No Known Allergies Allergy (Verified 02/11/20 13:32) Home Medications: Ambulatory Orders Medication Instructions Recorded Cyanocobalamin (Vitamin B-12) 5,000 mcg PO DAILY 07/01/18 [Vitamin B12] Insulin Aspart [Novolog Flexpen] 14 units SC TIDCM 07/01/18 Insulin Degludec [Tresiba 20 unit SQ QHS 07/01/18 Flextouch U-100] Lisinopril [Zestril] 40 mg PO QHS 07/01/18 Pregabalin [Lyrica] 150 mg PO BID 07/01/18 Sertraline HCl [Zoloft] 200 mg PO DAILY 07/01/18 Amlodipine [Norvasc] 10 mg PO DAILY 02/11/20 Aspirin [Aspir 81] 81 mg PO DAILY 02/11/20 Atorvastatin Calcium [Lipitor] 80 mg PO DAILY 02/11/20 Meloxicam [Mobic] 15 mg PO DAILY 02/11/20 metFORMIN HCl [Glucophage] 1,000 mg PO BID 02/11/20 Surgical History: cataract, - - Cataract surgery, lumbar back surgery remotely. Psychiatric History: Anxiety, Depression Smoking Status: Former smoker Alcohol: None Drugs: None - *Family History Maternal History Items: Diabetes Paternal History Items: Diabetes Review of Systems Constitutional: Reports: Weakness, Fatigue. Denies: Anorexia, Chills, Fever Eyes: Denies: Blurred vision, Double vision, Drainage HEENT: Denies: Difficulty Hearing, Ear Pain, Eye Pain, Nasal bleeding, Sore Throat Cardiovascular: Reports: Light Headedness. Denies: Chest Pain, Chest Tightness, Edema, Heaviness, Orthopnea, Paroxysmal Noc. Dyspnea, Syncope Respiratory: Denies: Cough, Pleuritic Pain, Shortness of Breath, Sputum production, Wheezing Gastrointestinal: Denies: Abdominal Pain, Constipation, Diarrhea, Nausea, Vomiting Genitourinary: Denies: Dysuria, Frequency, Hematuria Musculoskeletal: Denies: Arm Pain, Back Pain, Foot Pain Skin: Denies: Dryness, Rash Neurological: Denies: Balance problems, Double vision, Change in Speech, Slurred speech, Confusion, Headaches, Incoordination, Numbness Psychiatric: Reports: Anxiety, Depression Endocrine: Denies: Change in Body Habitus, Polydipsia, Polyuria VTE Information - Inpt Only VTE Present on Admission: No VTE Mechan Device Prophylaxis: SCD's VTE Pharm Prophylaxis ordered?: No Patient Problems: Active and Suspected Problems Third degree heart block (Acute) - Physical Exam Vitals/I&O's: Vital Signs Temp Pulse Resp BP Pulse Ox 97.8 F 36 L 19 H 148/48 H 96 02/11/20 15:35 02/11/20 15:35 02/11/20 15:35 02/11/20 15:35 02/11/20 15:35 Oxygen Delivery Method Room Air Weight: 215 lb 13.321 oz Body Mass Index (BMI) 30.1 Finger Stick Blood Glucose 116 General: Alert, Oriented x3, Cooperative, No apparent distress HEENT: Atraumatic, PERRLA, EOMI, Normocephalic Oral: Moist Mucosa, No Gingival or Mucosal Lesions/ Ulcerations Neck: Supple, No JVD, Negative Carotid Bruits, Trachea Midline, Thyroid Normal Size and Texture Lungs: Clear to auscultation, Normal air movement, No rhonchi, No wheeze, No rales, Diminished Cardiovascular: Regular rate, Regular Rhythm, Normal S1, Normal S2, PMI Normal, Bradycardic Abdomen: Bowel Sounds Present, Soft, Non Tender, Non-Distended, No Hepato- splenomegaly Extremities: No clubbing, No cyanosis, No edema Skin: No rashes, No breakdown Lymphatic: No Cervical, Supraclavicular, or Inguinal Adenopathy Neurological: Cranial nerves II-XII grossly intact, Motor Exam 5/5 strength throughout Psych/Mental Status: Normal Affect, Appropriate, Alert and oriented to time, place, person, mood and affect Laboratory Results 02/11/20 13:55: WBC 8.8, RBC 4.59 L, Hgb 12.3 L, Hct 39.1 L, MCV 85.2, MCH 26.8 L, MCHC 31.5 L, RDW Std Deviation 48.4 H, RDW Coeff of John 15.6 H, Plt Count 173, MPV 10.8, Immature Gran % (Auto) 0.200, Neut % (Auto) 70.1 H, Lymph % (Auto) 18.5 L, [place] % (Auto) 7.1, Eos % (Auto) 3.6, Baso % (Auto) 0.5, Absolute Neuts (auto) 6.2, Absolute Lymphs (auto) 1.63, Nucleated RBC % 0 02/11/20 13:55: PT 12.6, INR 1.0, APTT 29.4 02/11/20 13:55: Sodium 141, Potassium 4.2, Chloride 107, Carbon Dioxide 30.0, Anion Gap 4 L, BUN 24 H, Creatinine 0.90, Estim Creat Clear Calc 90.64, Est GFR (MDRD) Af Amer 109, Est GFR (MDRD) Non-Af 90, BUN/Creatinine Ratio 26.5 H, Glucose 88, Calcium 8.9, Magnesium 1.9, Total Bilirubin 0.40, AST 31, ALT 30, Alkaline Phosphatase 101, Troponin I < 0.015, Total Protein 7.0, Albumin 3.6, Globulin 3.4, Albumin/Globulin Ratio 1.1 Clinical Impression(s) from Imaging Studies Chest X-Ray 02/11/20 14:00 IMPRESSION: No acute abnormality is present. Electronically Signed: Aki Parrish, at 14:18 EDT , Service support , Assessment/Plan All Active Problems Third degree heart block (Acute) This is a 64 years old male patient presented to the emergency room because of fatigue, weakness and dizziness and he was found to have varying Mobitz type II second-degree AV block to complete heart block and is being admitted for evaluation and treatment. #1 Mobitz type II second-degree AV block/complete heart block: EKG reviewed. Patient's heart rate has been down to 30s, blood pressure stable. Denied any chest pain, troponin is negative. Serum electrolytes are within normal limits. LFT was unremarkable. Patient denied any history of CAD or cardiac inter ventions in the past. Plan: Admit to PCU, cardiac monitoring, serial cardiac enzymes, complete bedrest, repeat EKG tomorrow morning, check TSH, 2D echocardiogram was done and it is pending at this time, cardiology consult, plan for cardiac catheterization tomorrow and eventually placement of permanent pacemaker, repeat CBC and BMP tomorrow morning, obtain MRI and carotid Doppler report that was done at [facility]. #2 type 2 diabetes mellitus/peripheral neuropathy: ADA diet, Accu-Cheks, insulin sliding scale, continue Tresiba and pre-meal NovoLog, continue Lyrica for neuropathy. #3 hypertension: Blood pressures like elevated, continue Norvasc and lisinopril. #4 anxiety/depression: Continue Zoloft. #5 DVT prophylaxis: SCDs. This note was generated with Vindi dictation software. It may contain incorrect words, spelling, and punctuation that were not noted in checking the note before signing. Inpatient E&M: [id number] Init Hosp L3
--- NOTE | 2020-02-11 15:55 | CON.PCM_ITS ---
Problem List (1) Third degree heart block Status: Acute (2) Diabetes mellitus, type II Status: Chronic Qualifiers: Diabetes mellitus intermediate frame tender insulin use: with assisted use Diabetes mellitus complication status: with unspecified complications (3) HTN (hypertension) Status: Chronic Qualifiers: Hypertension type: essential hypertension Qualified Code(s): I10 - Essential (primary) hypertension (4) Obesity Status: Chronic Qualifiers: Obesity type: due to excess calories Obesity classification: adult class 1 (BMI 30 - 34.9) Reason for Consult Date of Consultation: 02/11/20 Reason for Consultation: Complete heart block, fatigue, dyspnea, diabetes, hypertension, previous CVA History of Present Illness: The patient is a 64 year old M, with history of hypertension, diabetes, hypercholesterolemia, who was recently being worked up for a neurological process such as a CVA by Dr. Abernathy at [facility]. Apparently the patient underwent MRI and carotid ultrasound studies. According to him it was not noted that the patient was bradycardic at that time. The patient presents to the emergency room with progressively worsening shortness of breath, dyspnea, fatigue, lightheadedness and dizziness. Upon arrival an EKG was performed which demonstrated sinus rhythm with complete heart block, interventricular conduction delay, no acute changes. Initial troponin was negative. On further history the patient states that over the past 6 to 8 months he has had progressively worsening fatigue, shortness of breath, dyspnea on exertion. He denies any chest pain or anginal symptoms either at the time of his initial event, or over the last several months. He denies any presyncope, syncope, or awareness that he has a slow heart rate. Apparently he took his pulse today, which triggered him to come in when it was around 30 bpm. Patient denies any previous catheterization, known coronary disease. He is only on baby aspirin as a blood thinner. 2D echo with Doppler was performed in the ER with results pending. Currently the patient is stable. Initial troponin is negative. TSH and T4 pending. [] Past Medical History Allergies/Adverse Reactions: Allergies No Known Allergies Allergy (Verified 02/11/20 13:32) Home Medications: Ambulatory Orders Medication Instructions Recorded Cyanocobalamin (Vitamin B-12) 5,000 mcg PO DAILY 07/01/18 [Vitamin B12] Insulin Aspart [Novolog Flexpen] 14 units SC TIDCM 07/01/18 Insulin Degludec [Tresiba 20 unit SQ QHS 07/01/18 Flextouch U-100] Lisinopril [Zestril] 40 mg PO QHS 07/01/18 Pregabalin [Lyrica] 150 mg PO BID 07/01/18 Sertraline HCl [Zoloft] 200 mg PO DAILY 07/01/18 Amlodipine [Norvasc] 10 mg PO DAILY 02/11/20 Aspirin [Aspir 81] 81 mg PO DAILY 02/11/20 Atorvastatin Calcium [Lipitor] 80 mg PO DAILY 02/11/20 Meloxicam [Mobic] 15 mg PO DAILY 02/11/20 metFORMIN HCl [Glucophage] 1,000 mg PO BID 02/11/20 Past Medical History (Chronic Problems): Chronic Problems Diabetes mellitus, type II (Chronic) HTN (hypertension) (Chronic) Chronic back pain (Chronic) Neuropathy (Chronic) Anxiety and depression (Chronic) Obesity (Chronic) Former tobacco use (Chronic) Surgical History: cataract, - - Cataract surgery, lumbar back surgery remotely. Psychiatric History: Anxiety, Depression - *Family History Maternal History Items: Diabetes Paternal History Items: Diabetes Smoking Status: Former smoker Alcohol: None Drugs: None Review of Systems - Review of Systems General: Reports: Fatigue, Weakness. Denies: Fever, Night Sweats Cardiovascular: Reports: Shortness of Breath, Lightheadedness, Dizziness. Denies: Chest Discomfort, Orthopnea, PND, Peripheral Edema, Palpitations, Near Syncope, Syncope Respiratory: Denies: Cough, Sputum Production, Hemoptysis Gastrointestinal: Denies: Hematemesis, Hematochezia, Melena Genitourinary: Denies: Dysuria, Hematuria Skin: Denies: Rash Subjectve: Patient laying in bed, no acute distress. Objective: Vital Signs Temp Pulse Resp BP Pulse Ox 97.8 F 36 L 19 H 148/48 H 96 02/11/20 15:35 02/11/20 15:35 02/11/20 15:35 02/11/20 15:35 02/11/20 15:35 Oxygen Delivery Method Room Air Weight: 215 lb 13.321 oz Body Mass Index (BMI) 30.1 Finger Stick Blood Glucose 116 General: Awake, Alert, Oriented x 3 HEENT: PERRL, EOMI, Sclera Non Icteric Neck: Supple, Good ROM, No Lymph Node Enlargement Lungs: Clear to auscultation Cardiovascular: Regular Rhythm, Normal S2, No Rubs, No Gallops Murmur Murmur: Grade 3/6, Crescendo-Decrescendo Vascular: No Carotid Bruits, Radiation of Murmur to Carotid Arteries, Normal Femoral Pulses, Normal Radial Pulses, Normal Dorsalis Pedal Pulse, Normal Posterior Tibial Pulses Abdomen: Bowel Sounds Present, Soft, Non Tender, No HSM, No Organomegaly Extremities: No Cyanosis, No Clubbing, No edema Neurological: No Focal Motor or Sensory Deficit 02/11/20 13:55: WBC 8.8, RBC 4.59 L, Hgb 12.3 L, Hct 39.1 L, MCV 85.2, MCH 26.8 L, MCHC 31.5 L, Plt Count 173, MPV 10.8, Immature Gran % (Auto) 0.200, Neut % (Auto) 70.1 H, Lymph % (Auto) 18.5 L, Gregory % (Auto) 7.1, Eos % (Auto) 3.6, Baso % (Auto) 0.5, Absolute Neuts (auto) 6.2, Nucleated RBC % 0 02/11/20 13:55: PT 12.6, INR 1.0, APTT 29.4 02/11/20 13:55: Sodium 141, Potassium 4.2, Chloride 107, Carbon Dioxide 30.0, Anion Gap 4 L, BUN 24 H, Creatinine 0.90, Est GFR (MDRD) Af Amer 109, Est GFR (MDRD) Non-Af 90, BUN/Creatinine Ratio 26.5 H, Glucose 88, Calcium 8.9, Magnesium 1.9, Total Bilirubin 0.40, Troponin I < 0.015 Rhythm: EKG: As above ECHO: Pending Stress Test: Cardiac Cath: Pending PCI: CT Surgery: Holter monitor: EPS: PPM: CXR: Chest CT Scan: Assessment/Plan 1. Heart block: The patient presents with various degrees of high-grade block between complete heart block and Mobitz type II heart block, with symptomatic bradycardia, lightheadedness, dizziness, fatigue and shortness of breath. I recommend the patient undergo a TSH and T4 and a full rule out of troponins were myocardial infarction. His EKG suggest he may have had an old inferior wall myocardial infarction which may be contributing to the patient's heart block. He has never had a heart catheterization. Patient is on no rate lowering medications at this time he is on ramipril and baby aspirin. Recommend he continue baby aspirin, that he undergo a diagnostic left heart catheterization tomorrow morning to determine if he has any coronary occlusive disease that may explain his heart block. If he has no significant coronary disease, I would recommend he undergo a dual-chamber pacemaker placement. 2. Murmur: The patient appears to have an aortic stenosis murmur, and he is known about this for several years although he has not been told the cause. An echocardiogram was performed today with results pending. His physical exam suggest that it is an aortic stenosis murmur, radiating to both clavicles into the carotids. He has excellent 2+ upstroke bilaterally suggesting that he does not have significant aortic stenosis that requires intervention at this time. 3. Hyperlipidemia: The patient has several risk factors for coronary Klooster disease and would recommend aggressive LDL reduction. Continue statin based medications. Recommend obtaining a vascular profile. 4. Thank you very much for the opportunity to participate in the cardiac care of your patient. Discussed with Dr. Monteiro with respect to pacemaker tomorrow, discussed with Dr. Porras with respect to patient's plan of care. Total consultation time was between 330 and 4 PM. Inpatient E&M: 30550 Init Hosp L2
--- NOTE | 2020-02-11 16:25 | EKG12_ITS ---
Test Reason : COMPLETE HEART BLOCK Blood Pressure : / mmHG Vent. Rate : 036 BPM Atrial Rate : 036 BPM P-R Int : 196 ms QRS Dur : 094 ms QT Int : 576 ms P-R-T Axes : 025 -05 056 degrees QTc Int : 445 ms Sinus rhythm with type 1 2nd degree AV block and 2:1 block Septal infarct , age undetermined Abnormal ECG When compared with ECG of 01-JUL-2018 05:44, Sinus rhythm is no longer with 2nd degree A-V block (Mobitz I) Septal infarct is now Present Confirmed by CHARLEY URRUTIA, RACHEL ([id number]), editor managing newspaper CORNELIO RIEVRA ([id number]) on 02/17/2020 9:24:53 AM Referred By: MARLEY Confirmed By:PRIYANKA WHITEHEAD MD
[2020-02-11 16:46] LABS: T4 Free Direct 0.96 ng/dL (0.76-1.46); Thyroid Stim Hormone (TSH) 1.61 uIU/mL (0.358-3.74)
[2020-02-11] MEDS: 0.9% Normal Saline 1,000 ML 75 ML IV (17:27)
[2020-02-11 17:28] LABS: Prothrombin Time (Protime)PT. 12.8 SECONDS (11.7-14.9)
[2020-02-11 18:56] LABS: Bedside Glucose 70 mg/dL (70-110)
[2020-02-11 19:42] LABS: M R Staph aureus DNA By PCR Negative (Negative); Probe Check PASS; Specimen Processing Control PASS
[2020-02-11 21:10] LABS: Color, Urine Yellow (Yellow); Glucose, Dipstick Normal (Normal); Ketone-Dipstick Negative (Negative); Leukocyte Esterase-Dipstick Negative /ul (Negative); Nitrite-Dipstick Negative (Negative); Occult Blood-Urine 10 /ul (Negative); Protein-Dipstick 100 mg/dl (Negative); Urine Bilirubin Dipstick Negative (Negative); Urine Clarity Clear (Clear); Urine Urobilinogen 4 mg/dl (Normal)
[2020-02-11] MEDS: Lisinopril 40 MG Tablet PO (22:11)
[2020-02-11] MEDS: Pregabalin 75 MG Capsule 150 MG PO (22:23)
[2020-02-11 22:25] LABS: Bedside Glucose 115 mg/dL (70-110)
[2020-02-12] VITALS (24 sets, daily range): BP systolic 134–185; BP diastolic 50–91; PULSE 31–65; RESP 16–20; TEMP 36.6–37.1; O2SAT 91–98
[2020-02-12 05:31] LABS: Absolute Lymphocyte Count 1.89 X10^3/uL (0.83-4.51); Absolute Neutrophil Count 4.2 X10^3/uL (2.0-7.7); Basophil# 0.02 X10^3/uL; Basophil% 0.3 % (0-1); Eosinophil# 0.27 X10^3/uL; Eosinophils% 3.9 % (0-5); Hematocrit 32.7 % (40-54); Hemoglobin 10.3 g/dL (13.0-16.5); Lymphocyte # 1.89 X10^3/ul (4.0); Lymphocyte % 27.4 % (19-41); Mean Corp Hgb Conc 31.5 g/dL (32-36); Mean Corpuscular Hgb 26.9 pg (27.0-32.0); Mean Corpuscular Volume 85.4 fL (80-94); Mean Platelet Vol. 11.1 fl (6.2-12.0); Monocyte# 0.56 X10^3/uL; Monocyte% 8.1 % (0-10); NRBC Flagged by Analyzer 0 % (0-5); Neutrophil # 4.15 X10^3/uL (2.7-7.7); Platelet Count 150 K/mm3 (150-450); RBC Distribution Width CV 15.6 % (11.6-14.6); RBC Distribution Width SD 48.9 fl (35.1-43.9); Red Blood Count 3.83 M/mm3 (4.6-6.2); White Blood Count 6.9 K/mm3 (4.4-11.0)
[2020-02-12 05:40] LABS: International Normalized Ratio 1.1; Partial Thromboplast Time 31.4 Seconds (24.1-36.2); Prothrombin Time (Protime)PT. 13.5 SECONDS (11.7-14.9)
[2020-02-12 05:50] LABS: Anion Gap 4 (5-15); BUN 23 mg/dL (7-18); BUN/Creat Ratio 26.8 RATIO (10-20); Chloride 112 mmol/L (98-107); Creatinine, Serum 0.86 mg/dL (0.70-1.30); EST Glomerular Filtration Rate 96 mL/min (>60); Est Glom Filt Rate - Afr Amer 116 mL/min (>60); Estimated Creatinine Clearance 94.85 ml/min; Glucose 82 mg/dL (74-106); Potassium 3.8 mmol/L (3.5-5.1); Sodium Level 145 mmol/L (136-145)
[2020-02-12] MEDS: 0.9% Normal Saline 1,000 ML 15 ML IV (06:06)
[2020-02-12] MEDS: Aspirin E.C. 81 MG Tablet PO (06:16)
[2020-02-12] MEDS: amLODIPine 10 MG Tablet PO (06:16)
[2020-02-12 06:25] LABS: Bedside Glucose 76 mg/dL (70-110)
[2020-02-12] MEDS: DiphenhydrAMINE 25 MG Capsule 50 MG PO (07:38)
--- NOTE | 2020-02-12 08:41 | CL.D_ITS ---
Patient Name: BRITTANI CEBALLOS V Study Date: 02/12/2020 Performing: Ashkan Swain MD Ht: 70.86 inches 180 cm : 1955 Wt: 207.23 lbs 94 kg Age: 64 Gender: male BSA: 2.14 PROCEDURE(S) PERFORMED NY25-OYJ/COR/LV CLINICAL PROFILE AND INDICATIONS Indications: Suspected CAD, Cardiac Arrythmia, Valvular Disease, Other; complete heart block alte rnating with Mobitz Type 2 Heart Failure: None Stress/Imaging Stress/Image Study Performed: No Angina Classification Anginal Classification w/in 2 Weeks: Anginal Equivalent Dyspnea CAD Presentations: Other: Dyspnea on exertion Comorbidities/Risk Factors: Hypertension Dyslipidemia Family History of Premature CAD Diabetes Mellitus: Diabetes Therapy: Insulin CONCLUSIONS 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 Manual sheath removal. D/w Dr Morley DESCRIPTION OF PROCEDURE The patient arrived to the procedure lab. The risks and benefits of the procedure as well as a full d escription of our services here and current unavailability of surgical backup were fully explained to the patient and/or their significant other prior to the catheterization. The Timeout was completed, verifying the correct patient and procedure. The patient's procedural site was prepped and draped in the usual fashion. Local anesthetic was given subcutaneously to right groin region with Lidocaine 2%. Using a modified Seldinger technique, arterial access was obtained via the right femoral artery, a 4 Fr sheath was inserted Left Coronary Artery selective angiography was performed in multiple views us ing a 4 Fr. JL5 catheter. Right Coronary Artery selective angiography was then performed in multiple views using a 4 Fr. 3DRC catheter. Left Ventriculography was performed in FLORES projection using a 4 Fr . Pigtail catheter. LV to AO pullback pressures were then recorded.The arterial sheath was pulled and manual compression applied until hemostasis is achieved. CORONARY ANGIOGRAPHY DOMINANCE: Right Dominant LEFT HEART ASSESSMENT Left Ventricular Ejection Fraction: by LV Gram 65 % Normal LV wall motion Normal Left Ventricular systolic function LEFT MAIN: Angiographically normal LEFT ANTERIOR DESCENDING ARTERY: Mild luminal irregularities less than 30% DIAGONAL 1: Proximal - 70 % Stenosis CIRCUMFLEX ARTERY: Mild luminal irregularities less than 30% OM 1: Proximal - 70 % Stenosis RIGHT CORONARY ARTERY: Mild luminal irregularities less than 30% RT PDA: Ostial - Mild luminal irregularities less than 30% VALVE FINDINGS: Aortic Valve Stenosis - mild COMPLICATIONS No Complications PROCEDURE MEDICATIONS Oxygen: 2 L/min via nasal cannula SUMMARY OF HEMODYNAMIC DATA Time AIR REST ECG 08:01:34 AO 179/53 (80) SA 08:12:07 LV 201/-8, 20 08:19:28 LV 215/-10, 20 08:19:45 LVp 206/16, 0 08:20:20 AOp 190/59 (90) 08:20:25 Signed By Ashkan Swain MD On 02/12/2020 8:40:49 AM Ashkan Swain MD
--- NOTE | 2020-02-12 09:01 | PCM.PN.HOSP ---
Patient Problems: Active and Suspected Problems Third degree heart block (Acute) Subjective: Patient seen and examined. He was admitted with a complaint of dizziness nad found to have complete heart block. He had cardiac cath today which showed 2 small vessel CAD, with no need for PCI now. He is due for pacemaker placement today. Patient seen after cardiac cath. He had no complaints, though he was lethargic during review. He denied dizziness, fever, chills, chest pain, nausea or vomiting or abdominal pain. Review of systems is otherwise negative. Vitals/I&O's: Vital Signs Temp Pulse Resp BP Pulse Ox 97.8 F 31 L 16 158/50 H 94 02/12/20 06:15 02/12/20 06:34 02/12/20 06:15 02/12/20 06:15 02/12/20 06:15 Oxygen Delivery Method Room Air Weight: 208 lb 1.862 oz Body Mass Index (BMI) 29.0 Finger Stick Blood Glucose 116 Intake and Output for Last 24 Hours 02/10/20 02/11/20 02/12/20 23:59 23:59 23:59 Intake Total 320 / 320 996.25 / 996.25 Balance 320 / 320 996.25 / 996.25 General: Alert, Oriented x3, Cooperative, No apparent distress, Lethargic HEENT: Atraumatic, PERRLA, EOMI, Normocephalic Oral: Dry Mucosa Neck: Supple, No JVD, Negative Carotid Bruits Lungs: Clear to auscultation, Normal air movement, No rhonchi, No wheeze, No rales Cardiovascular: Regular Rhythm, Normal S1, Normal S2, No murmurs, Bradycardic Abdomen: Bowel Sounds Present, Soft, Non Tender Extremities: No clubbing, No cyanosis, No edema, Capillary Refill Less than 3 Seconds Skin: No rashes, No breakdown Musculoskeletal: No Tenderness to Palpation of Joints or Extremities Lymphatic: No Cervical, Supraclavicular, or Inguinal Adenopathy Neurological: Cranial nerves II-XII grossly intact, Neuro grossly intact, Motor Exam 5/5 strength throughout Psych/Mental Status: Normal Affect, Appropriate, Alert and oriented to time, place, person, mood and affect Laboratory Results 02/11/20 13:55: WBC 8.8, RBC 4.59 L, Hgb 12.3 L, Hct 39.1 L, MCV 85.2, MCH 26.8 L, MCHC 31.5 L, RDW Std Deviation 48.4 H, RDW Coeff of John 15.6 H, Plt Count 173, MPV 10.8, Immature Gran % (Auto) 0.200, Neut % (Auto) 70.1 H, Lymph % (Auto) 18.5 L, Tompkins % (Auto) 7.1, Eos % (Auto) 3.6, Baso % (Auto) 0.5, Absolute Neuts (auto) 6.2, Absolute Lymphs (auto) 1.63, Nucleated RBC % 0 02/11/20 13:55: PT 12.6, INR 1.0, APTT 29.4 02/11/20 13:55: Sodium 141, Potassium 4.2, Chloride 107, Carbon Dioxide 30.0, Anion Gap 4 L, BUN 24 H, Creatinine 0.90, Estim Creat Clear Calc 90.64, Est GFR (MDRD) Af Amer 109, Est GFR (MDRD) Non-Af 90, BUN/Creatinine Ratio 26.5 H, Glucose 88, Calcium 8.9, Magnesium 1.9, Total Bilirubin 0.40, AST 31, ALT 30, Alkaline Phosphatase 101, Troponin I < 0.015, Total Protein 7.0, Albumin 3.6, Globulin 3.4, Albumin/Globulin Ratio 1.1 02/11/20 13:55: TSH 1.61, Free T4 0.96 02/11/20 13:55: TSH Cancelled 02/11/20 16:40: PT 12.8, INR 1.0 02/11/20 16:40: Troponin I < 0.015 02/11/20 17:05: MRSA (PCR) Negative 02/11/20 17:23: POC Glucose 70 02/11/20 19:20: Troponin I < 0.015 02/11/20 20:55: Urine Color Yellow, Urine Clarity Clear, Urine pH 6.0, Ur Specific [place] 1.020, Urine Protein 100 H, Urine Glucose (UA) Normal, Urine Ketones Negative, Urine Occult Blood 10 H, Urine Nitrite Negative, Urine Bilirubin Negative, Urine Urobilinogen 4 H, Ur Leukocyte Esterase Negative 02/11/20 22:15: POC Glucose 115 H 02/12/20 05:18: PT 13.5, INR 1.1, APTT 31.4 02/12/20 05:18: PT Cancelled, INR Cancelled 02/12/20 05:18: WBC 6.9, RBC 3.83 L, Hgb 10.3 L, Hct 32.7 L, MCV 85.4, MCH 26.9 L, MCHC 31.5 L, RDW Std Deviation 48.9 H, RDW Coeff of John 15.6 H, Plt Count 150, MPV 11.1, Immature Gran % (Auto) 0.300, Neut % (Auto) 60.0, Lymph % (Auto) 27.4, Tompkins % (Auto) 8.1, Eos % (Auto) 3.9, Baso % (Auto) 0.3, Absolute Neuts (auto) 4.2, Absolute Lymphs (auto) 1.89, Nucleated RBC % 0 02/12/20 05:18: Sodium 145, Potassium 3.8, Chloride 112 H, Carbon Dioxide 29.0, Anion Gap 4 L, BUN 23 H, Creatinine 0.86, Estim Creat Clear Calc 94.85, Est GFR (MDRD) Af Amer 116, Est GFR (MDRD) Non-Af 96, BUN/Creatinine Ratio 26.8 H, Glucose 82, Calcium 8.0 L 02/12/20 06:09: POC Glucose 76 Diagnostic Data Chest X-Ray 02/11/20 14:00 IMPRESSION: No acute abnormality is present. Electronically Signed: Aki Parrish, at 14:18 EDT , Service support , Current Medications Acetaminophen (Tylenol) 650 mg PO Q6H PRN PRN PRN Reason: Pain Score 1-10/Temp > 100.7 F Amlodipine Besylate (Norvasc) 10 mg PO DAILY [facility] Last Admin: 02/12/20 06:16 Dose: 10 mg Documented by: Aspirin (Ecotrin) 81 mg PO DAILY@0800 [facility] Last Admin: 02/12/20 06:16 Dose: 81 mg Documented by: Atorvastatin Calcium (Lipitor) 80 mg PO DAILY [facility] Dextrose (D50w Syringe) 0 gm IV X1 PRN; Protocol PRN Reason: Hypoglycemia Glucagon () 1 mg IM .X1 PRN PRN Reason: Hypoglycemia Heparin Sodium (Beef Lung) (Heparin 500 Unit/5 Ml (100/Ml)) 500 unit IV UD PRN PRN Reason: HEPARIN FLUSH Sodium Chloride () 1,000 mls @ 15 mls/hr IV .Q48H [facility] Last Admin: 02/11/20 17:42 Dose: Not Given Documented by: Sodium Chloride () 1,000 mls @ 15 mls/hr IV .Q48H [facility] Last Admin: 02/12/20 06:06 Dose: 15 mls/hr Documented by: Sodium Chloride () 250 mls @ 15 mls/hr IV .[id number] PRN PRN Reason: Saline Flush Sodium Chloride () 250 mls @ 15 mls/hr IV .[id number] PRN PRN Reason: Additional IVPB Infusion Insulin Glargine (Lantus (Bkc)) 20 units SC QHS [facility] Last Admin: 02/11/20 22:19 Dose: 16 units Documented by: Insulin Human Lispro (Humalog Kwikpen (Bk)) 0 unit SC ACHS [facility]; Protocol Last Admin: 02/12/20 06:18 Dose: Not Given Documented by: Insulin Human Lispro (Humalog Kwikpen (Bk)) 14 unit SC TIDCM [facility] Last Admin: 02/11/20 17:28 Dose: Not Given Documented by: Labetalol HCl (Trandate) 5 mg IV X1 PRN PRN Reason: SBP > 160 prior to sheath pull Stop: 02/14/20 08:28 Lisinopril (Zestril) 40 mg PO QHS [facility] Last Admin: 02/11/20 22:11 Dose: 40 mg Documented by: Ondansetron HCl (Zofran) 4 mg IV Q8H PRN PRN PRN Reason: NAUSEA/VOMITING Pregabalin (Lyrica) 150 mg PO BID [facility] Last Admin: 02/11/20 22:23 Dose: 150 mg Documented by: Sertraline HCl (Zoloft) 200 mg PO DAILY [facility] Sodium Chloride () 10 - 40 ml IV UD PRN PRN Reason: SALINE FLUSH STROKE Vital Signs/Narrative: Vital Signs Temp Pulse Resp BP Pulse Ox 02/12/20 06:34 31 L 02/12/20 06:15 97.8 F 35 L 16 158/50 H 94 Medical Necessity - Tobacco Use Smoking Status: Never smoker Assessment/Plan All Active Problems Third degree heart block (Acute) 1. Complete heart block remains bradycardic, with heart rate going down to the 30s cardiac cath today showed only minimal 2 small vessel disease, with no need for PCI for pacemaker placement today 2. TYpe 2 diabetes mellitus with peripheral neuropathy on Insulin degludec 20IU qhs on ISS. accuchecks ACHS on lyrica for neuropathy metformin on hold o/a of cardiac cath 3. Hypertension: on norvasc and lisinopril 4. Hyperlipidemia: on statin 5. Anxiety and depression: on Zoloft DVT prophylaxis: SCDs Inpatient E&M: 47581 Subs Hosp L2
[2020-02-12 11:01] LABS: Bedside Glucose 75 mg/dL (70-110)
[2020-02-12] MEDS: Cefazolin 2 GM in 0.9% Normal Saline 100 ML IV (11:34)
[2020-02-12] MEDS: Sertraline 100 MG Tablet 200 MG PO (14:08)
[2020-02-12] MEDS: Pregabalin 75 MG Capsule 150 MG PO ×2 (14:08→22:01)
[2020-02-12] MEDS: Atorvastatin Calcium 80 MG Tablet PO (14:08)
--- NOTE | 2020-02-12 14:15 | CL.IE_ITS ---
Patient: BRITTANI CEBALLOS V Study Date: 02/12/2020 Performing: Tristan Monteiro MD : 1955 Age: 64 Gender: male PROCEDURES PERFORMED [id number] PACER INSERT+DUAL LEADS INDICATIONS Mobitz (type II) AV block PROCEDURE DETAILS The patient was brought to the Catheterization Lab in the postabsorptive nonsedated state. [facility] consent was obtained prior to the procedure. Local anesthetic was given subcutaneously to the le ft upper chest area with Lidocaine 2%. Access was achieved and a guidewire was advanced into the left subclavian vein. Incision was made to the left upper chest. A peel-away sheath was inserted into the left subclavian vein. PPM ventricular lead was inserted / positioned to right ventricular. PPM ventr icular lead testing performed. PPM ventricular lead testing performed. The sheath was then removed. A peel-away sheath was inserted into the left subclavian vein. PPM atrial lead was inserted / position ed to the right atrial appendage. The sheath was then removed. PPM atrial lead testing performed. PPM atrial lead was repositioned and checked. The Ventricular PM lead sutured in place with 2-0 Silk. Th e Atrial lead sutured in place with 2-0 Silk. Device pocket was irrigated with antibiotic-ancef. PPM generator was attached to the lead(s) and inserted into the pocket. Subcutaneou s closure was completed with 3-0 Vicryl. Skin closure was completed with 4-0 Vicryl. Steri-strips tg lied to left subclavicular incision. The patient tolerated the procedure well. Estimated Blood Loss: 25 ml's IMPLANTED / EX-PLANTED DEVICES IMPLANTED DEVICE(S): PPM Generator - Bullet Lubricating Machine Operator: [employer], Model # L111 , Serial # [id number] PPM Atrial lead - Bullet Lubricating Machine Operator: [employer], Model # 7741 , Serial # [id number] PPM Ventricular lead - Bullet Lubricating Machine Operator: [employer], Model # 7742 , Serial # [id number] DEVICE PARAMETERS ATRIAL LEAD PARAMETERS: P wave- 1.4 (mV) Current- 1.6 (mA) threshold- 0.9 (V) impedence- 594 (OHMS) 10V test, no diaphragmatic capture VENTRICULAR LEAD PARAMETERS: R wave- paced (mV) Current- 1.0 (mA) threshold- 0.7 (V) impedence- 723 (OHMS) 10V test, no diaphragmatic capture DEVICE PARAMETERS: Mode- DDD Lower rate- 60 Upper rate- 130 CONCLUSIONS / RECOMMENDATIONS Device Conclusions: Successful implantation of a dual chamber pacemaker Device Recommendations: Follow up with Primary Care Physician PROCEDURE MEDICATIONS Versed 1 mg IV Fentanyl 50 mcg IV Oxygen: 2 L/min via nasal cannula Antibiotic given in appropriate timeframe. Ancef 2 Gm IV @ 02/12/2020 11:34:31 Signed By Tristan Monteiro MD On 02/12/2020 14:14:15 Tristan Monteiro MD
--- NOTE | 2020-02-12 15:34 | CASEMGMT ---
RN UTE Face to Face with patient for initial transition planning/care coordination assessment. RN CM introduced self and role at [facility]. Patient lying in bed, alert and oriented. Patient willing to participate in assessment and is able to answer all questions appropriately. Care providers, pharmacy, and demographics verified. Patient wishes to discharge home, denies need for home health at this time. Patient states he has no further needs or concerns at this time. CM to follow for discharge planning needs that may arise. PCP: Tami, Specialists: Patient not sure of names Preferred Pharmacy: [facility] Retail Insurance: [email or web address] Prescription Benefit: yes Living Will/HPOA: none LNOK: Girlfriend Living Arrangements: Patient lives with girlfriend in 2 story home with bed and bath on first floor, no steps to enter the home. Patient states he is indpendent Transportation: self/girlfriend DME/HHC: Patient has walker. Has had HHC setup through [employer] previously. Disposition Plan: Patient to discharge home with family support and follow-up plans in place. Ela SMITH, RN, CM
[2020-02-12 17:25] LABS: Bedside Glucose 172 mg/dL (70-110)
[2020-02-12] MEDS: Lisinopril 40 MG Tablet PO (22:01)
[2020-02-13 01:01] LABS: Bedside Glucose 135 mg/dL (70-110)
[2020-02-13 02:59] VITALS: PULSE 63
[2020-02-13 03:30] VITALS: BP 156/56; PULSE 61; RESP 18; TEMP 36.7; O2SAT 96
--- NOTE | 2020-02-13 05:55 | RAD_ITS ---
STUDY: X-RAY CHEST REASON FOR EXAM: Male, 64 years old. S/P PACEMAKER INSERTION -- TO EXCLUDE PNEUMOTHORAX TECHNIQUE: Single frontal view of the chest. COMPARISON: February 11, 2020. FINDINGS: There is been placement of a dual-lead cardiac pacemaker device left chest. No pneumothorax identified. No pleural effusion. Basilar atelectasis. No focal consolidation. Borderline enlarged heart size. Aortic calcifications. There are diffuse degenerative changes of the visualized thoracic spine. Scoliotic curvature to the spine. Degenerative changes of the shoulders. There is no demonstrated abnormality of the visualized soft tissue structures of the upper abdomen. RAD/Chest 3 View IMPRESSION: Interval insertion of a dual lead cardiac pacemaker device left hemithorax. There is no pneumothorax identified. Bilateral basal atelectasis. No focal consolidation. Electronically Signed: Danny Gannon, at 5:36 EDT Tel , Service support ,
[2020-02-13 06:55] LABS: Bedside Glucose 117 mg/dL (70-110)
[2020-02-13 07:00] VITALS: PULSE 60
[2020-02-13 07:30] VITALS: O2SAT 94
[2020-02-13] MEDS: Aspirin E.C. 81 MG Tablet PO (07:39)
[2020-02-13] MEDS: Atorvastatin Calcium 80 MG Tablet PO (07:39)
[2020-02-13] MEDS: amLODIPine 10 MG Tablet PO (07:39)
[2020-02-13] MEDS: Sertraline 100 MG Tablet 200 MG PO (07:39)
[2020-02-13] MEDS: Pregabalin 75 MG Capsule 150 MG PO (07:43)
--- NOTE | 2020-02-13 08:15 | PCM.PN.CARD ---
Subjectve: Patient doing very well this morning, feels much better after pacemaker placement. Telemetry shows a combination of sinus rhythm with ventricular pacing versus complete AV pacing. Wound is clean/dry/intact, without evidence of hematoma, tenderness, or crepitance. Chest x-ray is negative for pneumothorax. Pacer interrogation pending. Objective: Vital Signs Temp Pulse Resp BP Pulse Ox 98.0 F 60 18 156/56 H 94 02/13/20 03:30 02/13/20 07:00 02/13/20 03:30 02/13/20 03:30 02/13/20 07:30 Oxygen Delivery Method Room Air Weight: 208 lb 1.862 oz Body Mass Index (BMI) 29.0 Finger Stick Blood Glucose 116 Intake and Output for Last 24 Hours 02/11/20 02/12/20 02/13/20 23:59 23:59 23:59 Intake Total 320 / 320 1907.50 / 1907.50 120 / 120 Output Total 1050 / 1050 600 / 600 Balance 320 / 320 857.50 / 857.50 -480 / -480 General: Awake, Alert, Oriented x 3 HEENT: PERRL, EOMI, Sclera Non Icteric Neck: Supple, Good ROM, No Lymph Node Enlargement Lungs: Clear to auscultation Cardiovascular: Regular Rhythm, Normal S1, Normal S2, No Murmurs, No Rubs, No Gallops Vascular: No Carotid Bruits, Normal Femoral Pulses, Normal Radial Pulses, Normal Dorsalis Pedal Pulse, Normal Posterior Tibial Pulses Abdomen: Bowel Sounds Present, Soft, Non Tender, No HSM, No Organomegaly Extremities: No Cyanosis, No Clubbing, No edema Neurological: No Focal Motor or Sensory Deficit Rhythm: EKG: ECHO: Stress Test: Cardiac Cath: PCI: CT Surgery: Holter monitor: EPS: PPM: CXR: Chest CT Scan: Medical Necessity - Tobacco Use Smoking Status: Never smoker Assessment/Plan 1. Heart block: The patient presents with various degrees of high-grade block between complete heart block and Mobitz type II heart block, with symptomatic bradycardia, lightheadedness, dizziness, fatigue and shortness of breath. Patient underwent a left heart catheterization yesterday which demonstrated no cardiovascular source of his arrhythmia or heart block. It was detected the patient had possibly two-vessel significant coronary occlusive disease in a diagonal and a obtuse marginal branch. As the patient required pacemaker placement immediately afterwards, he was not treated with aspirin or Plavix. The patient underwent successful dual-chamber pacemaker with a DDDR device, which appears to be functioning normally. Final pacer interrogation this morning is still pending. I recommended the patient be discharged home and he will follow-up with Dr. Swain going forward. He will obtain a treadmill echocardiogram in 2 weeks time to evaluate his diagonal and obtuse marginal branches. If he has any evidence of either anterior or lateral ischemia, he will require return for percutaneous intervention. Would hold off on adding Plavix at this time until the patient's wound site has completely healed. 2. Murmur: Echocardiogram done on the day of admission demonstrated normal LV function with moderate aortic stenosis by echocardiogram. The patient had mild aortic stenosis by pullback yesterday. He has 2+ carotid upstroke, indicating that his aortic stenosis is most likely not severe. Despite his arrhythmia and high degree AV block he has had no syncopal episodes. Would recommend yearly echocardiograms. He was found to have a fused left and right cusp, functionally he has a bicuspid aortic valve. 3. Hyperlipidemia: Patient was found to have significant two-vessel coronary artery disease as well as nonobstructive coronary disease. He requires aggressive LDL reduction. Continue statin based medications. Lipid panel is pending. 4. Thank you very much for the opportunity to participate in the cardiac care of your patient. Patient may be discharged home and follow-up with Dr. Swain going forward. Inpatient E&M: [id number] [facility] Hosp L2
--- NOTE | 2020-02-13 08:42 | DCINST_ITS ---
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: [employer] Atherosclerosis of coronary artery of [place] heart without angina pectoris (Chronic) Essential (primary) hypertension (Chronic) You will use the following diet at home:: Cardiac Your food should be the consistency of: Regular Your liquids should be the consistency of: Regular/Thin Discharge Activity: Return to Normal Activity Weight Bearing Status: Weight bearing as tolerated Call your doctor if you observe: Fever of 101 or Higher, Shortness of breath, Dizziness, Swelling in the ankles, Chest pain Instructions: Taking Your Medications, ED Bradycardia Allergies/Adverse Reactions: Allergies No Known Allergies Allergy (Verified 02/11/20 13:32) Medications to take at Discharge Cyanocobalamin (Vitamin B-12) [Vitamin B12] 5,000 mcg PO DAILY 07/01/18 Insulin Aspart [Novolog Flexpen] See Protocol SC TIDCM 07/01/18 Insulin Degludec [Tresiba Flextouch U-100] 20 unit SQ QHS 07/01/18 Lisinopril [Zestril] 40 mg PO QHS 07/01/18 Pregabalin [Lyrica] 150 mg PO BID 07/01/18 Sertraline HCl [Zoloft] 200 mg PO DAILY 07/01/18 Amlodipine [Norvasc] 10 mg PO DAILY 02/11/20 Aspirin [Aspir 81] 81 mg PO DAILY 02/11/20 Atorvastatin Calcium [Lipitor] 80 mg PO DAILY 02/11/20 Meloxicam [Mobic] 15 mg PO DAILY 02/11/20 metFORMIN HCl [Glucophage] 1,000 mg PO BID 02/11/20 Primary Care Physician: [facility] Doctor,Out of [NON-STAFF] - Please follow up with your Primary Care Physician in: PCP in 1-2 weeks Test Results: Test results from this visit will be discussed in further detail at your follow- up appointment, if applicable. Please Follow Up With: Ashkan Swain MD When: 1-2 weeks; for walking stress echo on outpatient basis in 2 weeks Please Follow Up With: Moisés Garrett MD When: 1-2 weeks Proposed Discharge Date: 02/13/20
--- NOTE | 2020-02-13 08:50 | DS.PCM_ITS ---
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: [email or web address] Date of Admission: 02/11/20 Date of Discharge: 02/13/20 - Primary Discharge Diagnosis Active and Suspected Problems (Last Updated 02/12/20 @ 18:37 by Juliana Ardon) Mobitz (type) II atrioventricular block (Acute) Third degree heart block (Acute) History of permanent cardiac pacemaker placement (Acute 02/12/20) 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: [email or web address] - Secondary Discharge Diagnosis Chronic Problems Atherosclerosis of coronary artery of [place] heart without angina pectoris (Chronic) Essential (primary) hypertension (Chronic) Diabetes mellitus, type II (Chronic) Chronic back pain (Chronic) Neuropathy (Chronic) Anxiety and depression (Chronic) Obesity (Chronic) Former tobacco use (Chronic) Hospital Course and Treatment Imaging Results: 02/13/20 05:55 Chest 3 View [RAD] Routine cardiology- Dr Swain Operations: None Procedures: Cardiac catheterization, - - pacemaker placement Summary of Care Provided: The patient is a 64 year old M with a past medical history as outlined was admitted through the ED on 02/11/2020 with a complaint of weakness and dizziness which has been going on for about 2 weeks prior to admission with assisted light headedness. He had noted that his heart rate had been going down to the 30s but he had not had any syncope or presyncope. He denied any chest pain, palp itations or shortness of breath. He had been on Norvasc and lisinopril for his hypertension. On admission in the ED, heart rate was in the 30s and EKG showed third-degree heart block. Troponins x3 were negative and electrolytes were normal. Chest x-ray showed no acute cardia pulmonary process. 2D echo done showed moderate concentric left ventricular hypertrophy with estimated EF of 65% and stage I diastolic dysfunction and moderately dilated right ventricle. Peak aortic valve gradient was 56 mmHg and mean aortic valve gradient was 30 mmHg and there was moderate restriction of the aortic valve. Patient had a cardiac cath on 02/12/2020 which showed 70% stenosis of the proximal diagonal artery and 70% stenosis in the obtuse marginal arteries, otehr arteries had less than 30% stenosis. He therefore didnt require a cardiac cath. He had pacemaker placement on 02/13/2020. Patient's heart rate improved after he had a pacemaker placed and was in the 60s. He remained stable and was discharged home on 02/13/2020. He is to follow-up with his primary care doctor and has follow-up with cardiology in 2 weeks. He will need a walking stress echocardiogram in 2 weeks. Next Patient seen and examined prior to discharge. He had no complaints and felt well. Review of symptoms otherwise negative. Labs and vitals reviewed. Home medication reviewed and reconciled. o/e: Vital Signs Temp Pulse Resp BP Pulse Ox 97.8 F 60 14 166/75 H 96 02/13/20 09:21 02/13/20 09:21 02/13/20 09:21 02/13/20 09:21 02/13/20 09:21 [] General: Alert, Oriented x3, Cooperative, No apparent distress HEENT: Atraumatic, PERRLA, EOMI, Normocephalic Oral: Dry Mucosa Neck: Supple, No JVD, Negative Carotid Bruits Lungs: Clear to auscultation, Normal air movement, No rhonchi, No wheeze, No rales Cardiovascular: Regular Rhythm, Normal S1, Normal S2, No murmurs, HR in the 60s Abdomen: Bowel Sounds Present, Soft, Non Tender Extremities: No clubbing, No cyanosis, No edema, Capillary Refill Less than 3 Seconds Skin: No rashes, No breakdown, clean dressing over pacemaker site. Musculoskeletal: No Tenderness to Palpation of Joints or Extremities Lymphatic: No Cervical, Supraclavicular, or Inguinal Adenopathy Neurological: Cranial nerves II-XII grossly intact, Neuro grossly intact, Motor Exam 5/5 strength throughout Psych/Mental Status: Normal Affect, Appropriate, Alert and oriented to time, place, person, mood and affect Plan is to discharge home today. 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: [email or web address] - Physical Exam Vitals/I&O's: Vital Signs Temp Pulse Resp BP Pulse Ox 98.0 F 60 18 156/56 H 94 02/13/20 03:30 02/13/20 07:00 02/13/20 03:30 02/13/20 03:30 02/13/20 07:30 Oxygen Delivery Method Room Air Weight: 208 lb 1.862 oz Body Mass Index (BMI) 29.0 Finger Stick Blood Glucose 116 Intake and Output for Last 24 Hours 02/11/20 02/12/20 02/13/20 23:59 23:59 23:59 Intake Total 320 / 320 1907.50 / 1907.50 120 / 120 Output Total 1050 / 1050 600 / 600 Balance 320 / 320 857.50 / 857.50 -480 / -480 Laboratory Results 02/12/20 10:55: POC Glucose 75 02/12/20 17:18: POC Glucose 172 H 02/12/20 21:53: POC Glucose 135 H 02/13/20 06:47: POC Glucose 117 H Current Medications Acetaminophen (Tylenol) 650 mg PO Q6H PRN PRN PRN Reason: Pain Score 1-10/Temp > 100.7 F Amlodipine Besylate (Norvasc) 10 mg PO DAILY [facility] Last Admin: 02/13/20 07:39 Dose: 10 mg Documented by: Aspirin (Ecotrin) 81 mg PO DAILY@0800 [facility] Last Admin: 02/13/20 07:39 Dose: 81 mg Documented by: Atorvastatin Calcium (Lipitor) 80 mg PO DAILY [facility] Last Admin: 02/13/20 07:39 Dose: 80 mg Documented by: Dextrose (D50w Syringe) 0 gm IV X1 PRN; Protocol PRN Reason: Hypoglycemia Glucagon () 1 mg IM .X1 PRN PRN Reason: Hypoglycemia Heparin Sodium (Beef Lung) (Heparin 500 Unit/5 Ml (100/Ml)) 500 unit IV UD PRN PRN Reason: HEPARIN FLUSH Sodium Chloride () 1,000 mls @ 15 mls/hr IV .Q48H [facility] Last Admin: 02/11/20 17:42 Dose: Not Given Documented by: Sodium Chloride () 1,000 mls @ 15 mls/hr IV .Q48H [facility] Last Infusion: 02/12/20 14:11 Dose: Infused Documented by: Sodium Chloride () 250 mls @ 15 mls/hr IV .[id number] PRN PRN Reason: Saline Flush Sodium Chloride () 250 mls @ 15 mls/hr IV .[id number] PRN PRN Reason: Additional IVPB Infusion Sodium Chloride () 1,000 mls @ 15 mls/hr IV .Q48H [facility] Last Admin: 02/12/20 14:10 Dose: Not Given Documented by: Insulin Glargine (Lantus (Bk)) 20 units SC QHS [facility] Last Admin: 02/12/20 21:55 Dose: Not Given Documented by: Insulin Human Lispro (Humalog Kwikpen (Bk)) 0 unit SC ACHS [facility]; Protocol Last Admin: 02/13/20 06:57 Dose: Not Given Documented by: Labetalol HCl (Trandate) 5 mg IV X1 PRN PRN Reason: SBP > 160 prior to sheath pull Stop: 02/14/20 08:28 Lisinopril (Zestril) 40 mg PO QHS [facility] Last Admin: 02/12/20 22:01 Dose: 40 mg Documented by: Ondansetron HCl (Zofran) 4 mg IV Q8H PRN PRN PRN Reason: NAUSEA/VOMITING Pregabalin (Lyrica) 150 mg PO BID [facility] Last Admin: 02/13/20 07:43 Dose: 150 mg Documented by: Sertraline HCl (Zoloft) 200 mg PO DAILY [facility] Last Admin: 02/13/20 07:39 Dose: 200 mg Documented by: Sodium Chloride () 10 - 40 ml IV UD PRN PRN Reason: SALINE FLUSH Discharge Diet: Low fat/ Low Cholesterol Discharge Activity: Return to Normal Activity Weight Bearing Status: Weight bearing as tolerated Call your doctor if you observe: Fever of 101 or Higher, Shortness of breath, Dizziness, Swelling in the ankles, Chest pain Home Medications: Medications to take at Discharge Cyanocobalamin (Vitamin B-12) [Vitamin B12] 5,000 mcg PO DAILY 07/01/18 Insulin Aspart [Novolog Flexpen] See Protocol SC TIDCM 07/01/18 Insulin Degludec [Tresiba Flextouch U-100] 20 unit SQ QHS 07/01/18 Lisinopril [Zestril] 40 mg PO QHS 07/01/18 Pregabalin [Lyrica] 150 mg PO BID 09/03/18 Sertraline HCl [Zoloft] 200 mg PO DAILY 07/01/18 Amlodipine [Norvasc] 10 mg PO DAILY 02/11/20 Aspirin [Aspir 81] 81 mg PO DAILY 02/11/20 Atorvastatin Calcium [Lipitor] 80 mg PO DAILY 02/11/20 Meloxicam [Mobic] 15 mg PO DAILY 02/11/20 metFORMIN HCl [Glucophage] 1,000 mg PO BID 02/11/20 Primary Care Physician: [facility] Doctor,Out of [NON-STAFF] - Please follow up with your Primary Care Physician in: PCP in 1-2 weeks Please Follow Up With: Ashkan Swain MD When: 1-2 weeks; for walking stress echo on outpatient basis in 2 weeks Please Follow Up With: Moisés Garrett MD When: 1-2 weeks Patient Instructions: Taking Your Medications, ED Bradycardia Disposition: Home Minutes spent on discharge:: 40 Patient Condition:: Stable Medical Necessity - Tobacco Use Smoking Status: Never smoker Meaningful Use Info Meaningful Use Diagnoses (Choose all that apply): None applicable Inpatient E&M: [id number] Disch Hosp
[2020-02-13 09:21] VITALS: BP 166/75; PULSE 60; RESP 14; TEMP 36.6; O2SAT 96
--- NOTE | 2020-02-13 09:32 | DCINST_ITS ---
Discharge Diet: No Restrictions Discharge Activity: May Not Drive May resume sexual activity in: 2 weeks Weight Bearing Status: Weight bearing as tolerated Call your doctor if your incision/area has: Continuous Slow Oozing, Sudden Increased Bleeding, Increased Pain/ Swelling, Increased Redness, Foul Smelling Discharge, Swelling at the incision site Call your doctor if you observe: Fever of 101 or Higher, Shortness of breath, Dizziness, Swelling in the ankles, Chest pain Suture Line Care: Avoid Pulling/Pushing, Avoid Pinching/Bending Cleanse incision/area with: Do not get Incision Wet, Keep Dressing Clean & Dry Additional Dressing/Incision Instructions:: When dressing is removed, wash and dry incision. Keep covered with a light bandage if it is rubbing against your clothing. Do not cover the incision with an airtight bandage. Change the bandage daily. Do not remove steri strips. The strips will fall off on their own. Instructions: Taking Your Medications, ED Bradycardia Additional Instructions: Signs and Symptoms to Report to Your Doctor at Once - call your doctor's office or Doctor's Registry ([phone]) Call 911 or go to the nearest Emergency Department if you feel you need urgent care. *Infection (fever, increased redness or swelling at the incision site, drainage from the incision increased pain at the pacemaker site) *Shortness of breath *Dizziness *Fainting spells *Swelling in the ankles *Chest pain *Prolonged hiccoughing *Increased palpitaitons (irregular heartbeat) Medications: Take your pain medication as directed. Refer to your discharge instruction sheet for a list of medications you are to take. Allergies/Adverse Reactions: Allergies No Known Allergies Allergy (Verified 02/11/20 13:32) Medications to take at Discharge Cyanocobalamin (Vitamin B-12) [Vitamin B12] 5,000 mcg PO DAILY 07/01/18 Insulin Aspart [Novolog Flexpen] See Protocol SC TIDCM 07/01/18 Insulin Degludec [Tresiba Flextouch U-100] 20 unit SQ QHS 07/01/18 Lisinopril [Zestril] 40 mg PO QHS 07/01/18 Pregabalin [Lyrica] 150 mg PO BID 07/01/18 Sertraline HCl [Zoloft] 200 mg PO DAILY 07/01/18 Amlodipine [Norvasc] 10 mg PO DAILY 02/11/20 Aspirin [Aspir 81] 81 mg PO DAILY 02/11/20 Atorvastatin Calcium [Lipitor] 80 mg PO DAILY 02/11/20 Meloxicam [Mobic] 15 mg PO DAILY 02/11/20 metFORMIN HCl [Glucophage] 1,000 mg PO BID 02/11/20 Primary Care Physician: [facility] Doctor,Out of [NON-STAFF] - Please follow up with your Primary Care Physician in: PCP in 1-2 weeks Test Results: Test results from this visit will be discussed in further detail at your follow- up appointment, if applicable. When: [facility] 02/18 at 9:30 am Proposed Discharge Date: 02/13/20
== END 2020-02-13 10:23 | disposition home or self-care (01) | DRG 171 ==
LOC: ED 15:32 → PCU 16:05
PROVIDERS: Internal Medicine Cardiovascular Disease; Admitting Provider Hospitalist; Emergency Provider Emergency Medicine; Visit Provider Student in an Organized Health Care Education/Training Program
DX: I44.2 Atrioventricular block, complete (principal); E11.42 Type 2 diabetes mellitus with diabetic polyneuropathy; I10 Essential (primary) hypertension; G89.29 Other chronic pain; F32.9 Major depressive disorder, single episode, unspecified; F41.9 Anxiety disorder, unspecified; Z87.891 Personal history of nicotine dependence; Z68.30 Body mass index [BMI] 30.0-30.9, adult; E66.09 Other obesity due to excess calories; E78.5 Hyperlipidemia, unspecified; Z86.73 Personal history of transient ischemic attack (TIA), and cerebral infarction without residual deficits; I25.10 Atherosclerotic heart disease of native coronary artery without angina pectoris; Q23.1 Congenital insufficiency of aortic valve
CPT/HCPCS: 33208; 36415; 71045; 71047; 80048; 80053; 81002; 82962; 83735; 84439; 84443; 84484; 85025; 85610; 85730; 87641; 93005; 93306; 93458; 99152; 99153; 99285; J7030; J7050; Q9957; Q9967; A4216; C1769; C1894; C8929

== ENCOUNTER 2020-04-11 12:03 | Emergency (ER) | payer MEDICAID, SELFPAY ==
[2020-02-11 16:40] VITALS: BMI 29.0
[2020-04-11 12:05] VITALS: BP 154/80; PULSE 64; RESP 18; TEMP 36.4; O2SAT 99; BMI 29.1
--- NOTE | 2020-04-11 12:24 | ED.DCSUM_ITS ---
History of Present Illness Chief Complaint: Wound Informant: Patient Onset: Weeks Current Severity: Mild Maximum Severity: Mild Narrative: Left anterior maldonado lesion for a week after bumping it against the back of car bumper 2 diabetes, stable other medical issues all stable, history of right foot infection requiring extensive management through the [facility] patient is concerned he might be developing infection related to contusion of the anterior maldonado, There is been no fever no drainage no redness, he is unable to see his physicians due to coronavirus, he does not have MRSA in the past Past Medical History - Allergies and Home Meds Allergies/Adverse Reactions: Allergies No Known Allergies Allergy (Verified 04/11/20 12:07) Past Medical History: - Surgical History: cataract, - - Cataract surgery, lumbar back surgery remotely. Smoking Status: Never smoker - Family History Maternal Family History: Reports: Diabetes Paternal Family History: Reports: Diabetes Review of Systems ROS: - ABDs prior right foot infection other medical issues see the above General: Denies: Chills, Fever, Sweats Eyes: Denies: Visual changes - bilaterally, Diplopia ENT: Denies: Rhinorrhea, Sore throat Cardiovascular: Denies: Chest pain, Palpitations Respiratory: Denies: Dyspnea, Cough, Dyspnea on exertion Gastrointestinal: Denies: Abdominal pain, Nausea, Vomiting, Diarrhea, Melena, Hematochezia Genitourinary: Denies: Dysuria, Hematuria, Frequency Musculoskeletal: Reports: Extremity Pain. Denies: Back pain Skin: Denies: Rash, Wounds Neurological: Denies: Headache, Weakness, Numbness Physical Exam Vital Signs/Narrative: Vital Signs Temp Pulse Resp BP Pulse Ox 04/11/20 12:05 97.5 F L 64 18 154/80 H 99 General: Well nourished, Well developed, No Acute Distress Head: Normocephalic, Atraumatic Eyes: Perrl, EOMI ENT: Moist mucous membranes, No rhinorrhea Neck: Supple, Nontender Cardiovascular: Regular rate, Regular rhythm, No murmurs Respiratory: No distress, CTA bilaterally, Chest nontender Abdomen: Soft, Nontender, Nondistended, Normal bowel sounds Back: Nontender, Normal Inspection Extremities: Nontender, No edema, - - He has a 2 cm circular area of contusion that appears old there is no redness warmth skin breakdown his ankle tib-fib knee foot all unremarkable, no lymphangitic streaking of any kind no signs of abscess just a healing contusion Skin: Normal color, No rash Neurological: Alert, Oriented x3, Cranial nerves II-XII grossly intact, Normal Strength, Normal Sensation Psychological: Normal affect, Normal Mood Diagnostic/Tx/Re-eval - Medical Decision Making Patient has no pain there is no active signs of infection however he is concern for infection given what happened to his right foot, he has no history of MRSA, all of his other health conditions have been normal and stable, at this time he will be started on Augmentin and follow-up with his mental health providers for further management Home stable Final impression left maldonado contusion concern for infection ED Disposition - Plan for ED Patient: Diagnosis: Left maldonado cellulitis Instructions: Diabetic Foot Ulcers Prescriptions: Amox/Clavulanate Tablet [Augmentin Tablet] 875 mg PO Q12H #20 tab Prescription Printed
== END 2020-04-11 12:52 | disposition home or self-care (01) ==
PROVIDERS: Emergency Provider Emergency Medicine
DX: L03.116 Cellulitis of left lower limb (principal)
CPT/HCPCS: 99282

== ENCOUNTER 2020-06-25 23:10 | Emergency (ER) | payer MEDICAID, SELFPAY ==
[2020-06-25 23:12] VITALS: BP 137/61; PULSE 75; RESP 16; TEMP 36.3; O2SAT 100; BMI 27.8
--- NOTE | 2020-06-25 23:20 | ED.DCSUM_ITS ---
History of Present Illness Chief Complaint: Wound Informant: Patient Narrative: Presents with a superficial skin wound on the bottom of his left great toe. He cannot feel it. He has chronic diabetes for last 25 years. Is not bothering him. He is noticed no drainage. He had an infection in his right toe a year ago and almost lost the toe but was able to get it under control and wants to make sure that does not happen again. He is using Neosporin on it. He just noticed it tonight. No redness or drainage. Current severity is mild. 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: [employer] (2) [place] (type) II atrioventricular block Status: Acute (3) Third degree heart block Status: Acute (4) Anxiety and depression Status: Chronic (5) Atherosclerosis of coronary artery of [place] heart without angina pectoris Status: Chronic (6) Chronic back pain Status: Chronic (7) Diabetes mellitus, type II Status: Chronic (8) Essential (primary) hypertension Status: Chronic (9) Former tobacco use Status: Chronic (10) Neuropathy Status: Chronic (11) Obesity Status: Chronic Past Medical History - Allergies and Home Meds Allergies/Adverse Reactions: Allergies No Known Allergies Allergy (Verified 06/25/20 23:13) Primary Care Physician: NOT,DEFINED [Primary Care Provider] - Prior records reviewed: Yes Past Medical History: - - See problem list Surgical History: cataract, - - Cataract surgery, lumbar back surgery remotely. Smoking Status: Former smoker Alcohol: None Drugs: None - Family History Maternal Family History: Reports: Diabetes Paternal Family History: Reports: Diabetes Review of Systems General: Denies: Chills, Fever, Sweats Eyes: Denies: Visual changes - bilaterally, Diplopia ENT: Denies: Rhinorrhea, Sore throat Cardiovascular: Denies: Chest pain, Palpitations Respiratory: Denies: Dyspnea, Cough, Dyspnea on exertion Gastrointestinal: Denies: Abdominal pain, Nausea, Vomiting, Diarrhea, Melena, Hematochezia Genitourinary: Denies: Dysuria, Hematuria, Frequency Musculoskeletal: Denies: Back pain, Extremity Pain Skin: Reports: Wounds. Denies: Rash Neurological: Denies: Headache, Weakness, Numbness Physical Exam Vital Signs/Narrative: Vital Signs Temp Pulse Resp BP Pulse Ox 06/25/20 23:12 97.3 F L 75 16 137/61 H 100 General: Well nourished, Well developed, No Acute Distress Head: Normocephalic, Atraumatic Eyes: Perrl, EOMI ENT: Moist mucous membranes, No rhinorrhea Neck: Supple, Nontender Cardiovascular: Regular rate, Regular rhythm, No murmurs Respiratory: No distress, CTA bilaterally, Chest nontender Abdomen: Soft, Nontender, Nondistended, Normal bowel sounds Back: Nontender, Normal Inspection Extremities: Nontender, No edema Skin: Normal color, No rash, - - he has a superficial tiny ulcer on the bottom of his left great toe. It measures 0.5 x 0.5 x 1 mm deep. No redness or infection Neurological: Alert, Oriented x3, Cranial nerves II-XII grossly intact, Normal Strength, Normal Sensation Psychological: Normal affect, Normal Mood Diagnostic/Tx/Re-eval - Medical Decision Making Wound was cleansed and dressed and given Neosporin. This is very tiny. He will follow-up with his family doctor. I do not feel he needs referral to wound management as this is very superficial very early breaking the skin. Patient was just worried because he had a bad infection last year on the opposite foot. ED Disposition - Plan for ED Patient: Disposition: Home or Assisted Living Diagnosis: Skin ulcer Instructions: Diabetic Foot Ulcers Referrals: NOT,DEFINED [Primary Care Provider] -
== END 2020-06-26 00:11 | disposition home or self-care (01) ==
LOC: ED 23:31
PROVIDERS: Emergency Provider Emergency Medicine; PCP Physician Assistant
DX: L97.529 Non-pressure chronic ulcer of other part of left foot with unspecified severity (principal); I25.10 Atherosclerotic heart disease of native coronary artery without angina pectoris; E66.9 Obesity, unspecified; E11.9 Type 2 diabetes mellitus without complications; F41.9 Anxiety disorder, unspecified; I10 Essential (primary) hypertension; Z79.4 Long term (current) use of insulin; Z79.899 Other long term (current) drug therapy; Z95.0 Presence of cardiac pacemaker; Z87.891 Personal history of nicotine dependence; Z79.82 Long term (current) use of aspirin
CPT/HCPCS: 99282; A4216

== ENCOUNTER 2020-08-14 11:48 | Emergency (ER) ==
--- NOTE | 2020-08-14 12:09 | ED.DCSUM_ITS ---
History of Present Illness Chief Complaint: Lower Extremity Injury Detail of Chief Complaint: Left great toe infection Informant: Patient Onset: Weeks - 6 weeks Context: Gradual Onset Current Severity: Moderate Maximum Severity: Moderate Narrative: Patient presents with infection to the left great toe. He does have a history of diabetes and neuropathy. He reports a blister starting to the distal end of his left great toe about 6 weeks ago. Since that time he is noted increased drainage and discoloration. He does report similar episode with his right foot a couple years ago. He denies fever or chills. He does report getting some drainage out of the toe intermittently. He sees a lead embedded software engineer in [place] through [facility]. 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: [employer] (2) Third degree heart block Status: Chronic (3) Anxiety and depression Status: Chronic (4) Atherosclerosis of coronary artery of [place] heart without angina pectoris Status: Chronic (5) Chronic back pain Status: Chronic (6) Diabetes mellitus, type II Status: Chronic (7) Essential (primary) hypertension Status: Chronic (8) Neuropathy Status: Chronic Past Medical History - Allergies and Home Meds Allergies/Adverse Reactions: Allergies No Known Allergies Allergy (Verified 08/14/20 11:50) Primary Care Physician: Moisés Garrett PA-C [Primary Care Provider] - Prior records reviewed: Yes Surgical History: cataract, - - Cataract surgery, lumbar back surgery remotely. Smoking Status: Former smoker - Family History Maternal Family History: Reports: Diabetes Paternal Family History: Reports: Diabetes Review of Systems General: Denies: Chills, Fever Eyes: Denies: Visual changes - bilaterally ENT: Denies: Bilateral ear pain Cardiovascular: Denies: Chest pain Respiratory: Denies: Dyspnea, Cough Gastrointestinal: Denies: Abdominal pain, Nausea, Vomiting, Diarrhea Genitourinary: Denies: Dysuria Musculoskeletal: Denies: Extremity Pain Skin: Reports: Wounds Hematologic: Denies: Easy bruising, Easy bleeding Allergy: Denies: Uticaria Physical Exam Vital Signs/Narrative: Vital Signs Temp Pulse Resp BP Pulse Ox 08/14/20 11:49 96.6 F L 72 16 132/95 H 99 Inital Vital Signs reviewed: Yes General: Well nourished, Well developed Head: Normocephalic ENT: Moist mucous membranes Neck: Supple Cardiovascular: Regular rate, Regular rhythm, Murmur Respiratory: No distress, CTA bilaterally Abdomen: Soft, Nontender Skin: - - Soft blister to the distal aspect of the left great toe. Mild discoloration of the toe itself. No significant edema or lymphangitic streaking. No drainage at this time. Neurological: Alert, Oriented x3 Psychological: Normal affect Diagnostic/Tx/Re-eval 08/14/20 12:55 Foot min 3 Views [RAD] Stat Three-view left foot x-ray per my review reveals no evidence of bony destruction. Laboratory Results 08/14/20 08/14/20 12:12 12:12 WBC 7.1 RBC 3.86 L Hgb 11.2 L Hct 35.3 L MCV 91.5 MCH 29.0 MCHC 31.7 L RDW Std Deviation 45.4 H RDW Coeff of John 13.4 Plt Count 163 MPV 10.5 Immature Gran % (Auto) 0.300 Neut % (Auto) 74.6 H Lymph % (Auto) 15.9 L [place] % (Auto) 5.9 Eos % (Auto) 2.9 Baso % (Auto) 0.4 Absolute Neuts (auto) 5.3 Absolute Lymphs (auto) 1.13 Nucleated RBC % 0 Sodium 140 Potassium 4.6 Chloride 105 Carbon Dioxide 31.0 Anion Gap 4 L BUN 27 H Creatinine 0.91 Estim Creat Clear Calc 89.64 Est GFR (MDRD) Af Amer 108 Est GFR (MDRD) Non-Af 90 BUN/Creatinine Ratio 29.7 H Glucose 131 H Calcium 9.0 - Medical Decision Making Patient was given a dose of Unasyn and vancomycin to cover diabetic foot infection. Blood cultures were drawn. I do not see evidence of bony destructio n on my review of images. Patient will be treated with Bactrim and Keflex at home with strict return instructions. He will be referred to local podiatry or will follow-up with his lead embedded software engineer in [place]. ED Disposition - Plan for ED Patient: Disposition: Home or Assisted Living Diagnosis: Diabetic foot infection Instructions: ED Foot Care Diabetic, Diabetic Foot Ulcers Prescriptions: Smz/Tmp Ds [Bactrim Ds] 1 tab PO BID #20 tab Transmission Status: Pending to [facility] Cephalexin [Keflex] 500 mg PO Q6 #40 cap Transmission Status: Pending to [facility] Referrals: Ceasar Lim DPM [STAFF PHYSICIAN] - As soon as possible
[2020-08-14 12:45] LABS: Anion Gap 4 (5-15); BUN 27 mg/dL (7-18); BUN/Creat Ratio 29.7 RATIO (10-20); Chloride 105 mmol/L (98-107); Creatinine, Serum 0.91 mg/dL (0.70-1.30); EST Glomerular Filtration Rate 90 mL/min (>60); Est Glom Filt Rate - Afr Amer 108 mL/min (>60); Estimated Creatinine Clearance 89.64 ml/min; Glucose 131 mg/dL (74-106); Potassium 4.6 mmol/L (3.5-5.1); Sodium Level 140 mmol/L (136-145)
[2020-08-14 12:47] LABS: Absolute Lymphocyte Count 1.13 X10^3/uL (0.83-4.51); Absolute Neutrophil Count 5.3 X10^3/uL (2.0-7.7); Basophil# 0.03 X10^3/uL; Basophil% 0.4 % (0-1); Eosinophil# 0.21 X10^3/uL; Eosinophils% 2.9 % (0-5); Hematocrit 35.3 % (40-54); Hemoglobin 11.2 g/dL (13.0-16.5); Lymphocyte # 1.13 X10^3/ul (4.0); Lymphocyte % 15.9 % (19-41); Mean Corp Hgb Conc 31.7 g/dL (32-36); Mean Corpuscular Volume 91.5 fL (80-94); Mean Platelet Vol. 10.5 fl (6.2-12.0); Monocyte# 0.42 X10^3/uL; Monocyte% 5.9 % (0-10); NRBC Flagged by Analyzer 0 % (0-5); Neutrophil # 5.31 X10^3/uL (2.7-7.7); Neutrophil % 74.6 % (47-70); Platelet Count 163 K/mm3 (150-450); RBC Distribution Width CV 13.4 % (11.6-14.6); RBC Distribution Width SD 45.4 fl (35.1-43.9); Red Blood Count 3.86 M/mm3 (4.6-6.2); White Blood Count 7.1 K/mm3 (4.4-11.0)
--- NOTE | 2020-08-14 12:55 | RAD_ITS ---
STUDY: X-RAY - LEFT FOOT CLINICAL: Male, 64 years old. INFECTION GREAT TOE DISTAL END TECHNIQUE: 3 view(s) of the foot. COMPARISON: None. FINDINGS: Normal talus, calcaneus, and tarsal bones. Normal visualized subtalar, talonavicular, calcaneocuboid, tarsal and tarsometatarsal articulations. Normal metatarsi. Normal metatarsophalangeal joint of the great toe. Normal tibial and fibular sesamoid bones. Normal interphalangeal joint of the great toe. Normal phalanges of the great toe. Normal second through fifth metatarsophalangeal joints. Normal interphalangeal joints and phalanges of the lesser toes. Possible soft tissue swelling great toe. No subcutaneous gas. RAD/Foot min 3 Views IMPRESSION: Soft tissue swelling great toe Electronically Signed: Bam Fowler MD at 13:27 EDT , Service support ,
[2020-08-14 15:51] VITALS: BP 149/73; PULSE 58; RESP 16; O2SAT 97
== END 2020-08-14 15:53 | disposition home or self-care (01) ==
LOC: ED 14:23
PROVIDERS: Emergency Medicine
DX: E11.628 Type 2 diabetes mellitus with other skin complications (principal); I25.10 Atherosclerotic heart disease of native coronary artery without angina pectoris; I10 Essential (primary) hypertension; E11.36 Type 2 diabetes mellitus with diabetic cataract; E11.40 Type 2 diabetes mellitus with diabetic neuropathy, unspecified; Z95.0 Presence of cardiac pacemaker; Z79.84 Long term (current) use of oral hypoglycemic drugs; Z79.82 Long term (current) use of aspirin; Z87.891 Personal history of nicotine dependence
CPT/HCPCS: 36415; 73630; 80048; 85025; 87040; 96365; 96366; 96367; 99281; 99284; J7050; A4216; J0295

== ENCOUNTER → 2022-11-22 | Outpatient (CLI) | payer MEDICARE, MEDICAID, SELFPAY ==
--- NOTE | 2022-11-22 10:48 | ECHOCS_ITS ---
Version 2 Reason For Study: MURMUR Procedure This was a 2D Doppler, Color Flow transthoracic echocardiogram. Contrast injection was performed. Exam performed in department. Left Ventricle Normal LV size. Left ventricular systolic function is normal. Mild segmental systolic dysfunction (see wall motion). Stage 1 diastolic dysfunction. Mid-Inferior: Hypokinetic. Infero-Basal: Hypokinetic. Right Ventricle Normal RV size. ICD or pacer leads identified within the right ventricle. Normal systolic function. Atria Normal left atrium. Normal right atrium. Mitral Valve There is mild mitral annular calcification. Tricuspid Valve Normal tricuspid valve. Mild tricuspid valve insufficiency. Pulmonary artery systolic pressure is 26 mmHg. Aortic Valve The aortic valve is not well visualized. Peak aortic valve gradient 64 mmHg. Mean aortic valve gradient 38 mmHg. Moderate to severe aortic stenosis. Calculated aortic valve area (continuity equation) is 0.7 cm2. Pulmonic Valve Normal pulmonic valve. Great Vessels Normal aortic root. The pulmonary artery is normal size. Normal inferior vena cava. Pericardium/Pleural No pericardial effusion. Medication 22 gauge I.V. with prn adaptor inserted into right arm. Diluted definity 2.0ml given slow IV push to enhance endocardial definition. MMode/2D Measurements & Calculations LVIDd: 4.5 cm IVSd: 1.3 cm LVOT diam: 2.2 cm LVIDs: 3.4 cm LVPWd: 1.4 cm RVDd: 3.5 cm FS: 24.7 % LVOT area: 3.8 cm2 Ao root diam: 3.8 cm LAV(MOD-bp): 61.6 ml LVAd ap4: 36.7 cm2 LA dimension: 4.0 cm LAV(MOD-bp) Indexed: 29.4 ml/m2 LVLd ap4: 9.3 cm LAV(MOD-sp2): 66.4 ml EDV(MOD-sp4): 125.0 ml LAV(MOD-sp4): 47.1 ml EDV(sp4-el): 122.8 ml LVAs ap4: 22.6 cm2 LVLs ap4: 8.2 cm ESV(MOD-sp4): 51.0 ml ESV(sp4-el): 52.4 ml EF(MOD-sp4): 59.2 % EF(sp4-el): 57.3 % LVAd ap2: 28.5 cm2 SV(MOD-sp4): 73.9 ml SV(MOD-sp2): 41.8 ml LVLd ap2: 8.2 cm EDV(MOD-sp2): 82.7 ml EDV(sp2-el): 84.0 ml LVAs ap2: 19.6 cm2 LVLs ap2: 7.9 cm ESV(MOD-sp2): 40.9 ml ESV(sp2-el): 41.5 ml EF(MOD-sp2): 50.5 % SV(sp4-el): 70.4 ml LA dimension(2D): 3.8 cm LA A4 area: 16.6 cm2 RA A4 area: 10.4 cm2 Time Measurements MV dec time: 0.26 sec Doppler Measurements & Calculations MV E max arthur: 54.8 cm/sec Lat Peak E' Arthur: 3.8 cm/sec Med Peak E' Arthur: 5.9 cm/sec MV A max arthur: 96.1 cm/sec E/E' lat: 14.3 E/E' med: 9.4 MV E/A: 0.57 Ao V2 max: 398.0 cm/sec LV V1 max: 75.4 cm/sec SV(LVOT): 72.1 ml Ao max P.5 mmHg LV V1 max P.3 mmHg Ao V2 mean: 293.5 cm/sec LV V1 mean P.3 mmHg Ao mean P.0 mmHg LV V1 mean: 54.3 cm/sec Ao V2 VTI: 92.6 cm LV V1 VTI: 18.9 cm AV (velocity ratio): 0.20 LEA(I,D): 0.78 cm2 LEA(V,D): 0.72 cm2 PA V2 max: 47.1 cm/sec TR max arthur: 234.6 cm/sec TR max P.0 mmHg ECHO/Echo Complete W/ Contrast Interpretation Summary Normal LV size. Left ventricular systolic function is normal. Mild segmental systolic dysfunction (see wall motion). Stage 1 diastolic dysfunction. Mean aortic valve gradient 38 mmHg. Moderate to severe aortic stenosis. Calculated aortic valve area (continuity equation) is 0.7 cm2. Ordering Physician: Tristan Monteiro Referring Physician: Moisés Garrett Performed By: Jocelin Frank RDCS, RVT
== END | disposition home or self-care (01) ==
LOC: CVS 10:46
PROVIDERS: PCP Physician Assistant; Referring Provider Internal Medicine Cardiovascular Disease; Visit Provider Internal Medicine Cardiovascular Disease
DX: I35.0 Nonrheumatic aortic (valve) stenosis (principal); R01.1 Cardiac murmur, unspecified
CPT/HCPCS: 93306; Q9957; A4216; C8929

== ENCOUNTER 2022-12-11 07:47 | Day surgery (SDC) | payer BC, MEDICAID, SELFPAY ==
[2022-11-25 10:31] LABS: Absolute Lymphocyte Count 1.41 X10^3/uL (0.83-4.51); Absolute Neutrophil Count 10.4 X10^3/uL (2.0-7.7); Basophil# 0.04 X10^3/uL; Basophil% 0.3 % (0-1); Eosinophil# 0.17 X10^3/uL; Eosinophils% 1.3 % (0-5); Hematocrit 44.3 % (40-54); Hemoglobin 14.9 g/dL (13.0-16.5); Lymphocyte # 1.41 X10^3/ul (0.83-4.51); Lymphocyte % 10.9 % (19-41); Mean Corp Hgb Conc 33.6 g/dL (32-36); Mean Corpuscular Hgb 28.6 pg (27.0-32.0); Monocyte# 0.77 X10^3/uL; NRBC Flagged by Analyzer 0 % (0-5); Neutrophil # 10.44 X10^3/uL (2.7-7.7); Platelet Count 182 K/mm3 (150-450); RBC Distribution Width CV 12.8 % (11.6-14.6); RBC Distribution Width SD 39.2 fl (35.1-43.9); Red Blood Count 5.21 M/mm3 (4.6-6.2); White Blood Count 12.9 K/mm3 (4.4-11.0)
--- NOTE | 2022-11-25 10:35 | RAD_ITS ---
STUDY: X-RAY CHEST REASON FOR EXAM: Male, 67 years old. Preop for cardiac catheterization TECHNIQUE: PA and lateral views of the chest. COMPARISON: 02/13/2020 FINDINGS: Stable appearance of a left subclavian pacemaker The lungs are clear and expanded. There is no demonstrated pleural abnormality. Normal size heart. Normal mediastinum and beatris. Normal visualized pulmonary arteries. Normal visualized aortic arch and descending thoracic aorta. There are diffuse degenerative changes of the visualized thoracic spine. Normal visualized ribs, clavicles, and shoulders. There is no demonstrated abnormality of the visualized soft tissue structures of the upper abdomen. RAD/Chest PA and Lateral IMPRESSION: No acute pulmonary process, no interval change Electronically Signed: Chace Shankar MD at 10:52 EST ,
[2022-11-25 10:45] LABS: Anion Gap 8 (5-15); BUN 16 mg/dL (7-18); BUN/Creat Ratio 14.2 RATIO (10-20); Calcium,Total 9.3 mg/dL (8.5-10.1); Chloride 102 mmol/L (98-107); Creatinine, Serum 1.13 mg/dL (0.70-1.30); EST Glomerular Filtration Rate 69 mL/min (>60); Est Glom Filt Rate - Afr Amer 84 mL/min (>60); Glucose 337 mg/dL (74-106); Potassium 4.4 mmol/L (3.5-5.1); Sodium Level 138 mmol/L (136-145)
[2022-11-30 11:04] LABS: Absolute Neutrophil Count 8.8 X10^3/uL (2.0-7.7); Basophil# 0.03 X10^3/uL; Basophil% 0.3 % (0-1); Eosinophil# 0.15 X10^3/uL; Eosinophils% 1.3 % (0-5); Hematocrit 41.8 % (40-54); Hemoglobin 13.7 g/dL (13.0-16.5); Lymphocyte % 12.5 % (19-41); Mean Corp Hgb Conc 32.8 g/dL (32-36); Mean Corpuscular Hgb 28.1 pg (27.0-32.0); Mean Corpuscular Volume 85.8 fL (80-94); Mean Platelet Vol. 10.3 fl (6.2-12.0); Monocyte# 0.75 X10^3/uL; Monocyte% 6.7 % (0-10); NRBC Flagged by Analyzer 0 % (0-5); Neutrophil # 8.84 X10^3/uL (2.7-7.7); Neutrophil % 78.8 % (47-70); Platelet Count 176 K/mm3 (150-450); RBC Distribution Width CV 13.1 % (11.6-14.6); RBC Distribution Width SD 40.4 fl (35.1-43.9); Red Blood Count 4.87 M/mm3 (4.6-6.2); White Blood Count 11.2 K/mm3 (4.4-11.0)
[2022-12-08 08:29] VITALS: BMI 27.4
--- NOTE | 2022-12-11 13:56 | CL.D_ITS ---
Patient Name: BRITTANI CEBALLOS Study Date: 12/11/2022 Performing: Tristan Monteiro MD Ht: 71 inches 180.34 cm : 1955 Wt: 197.3 lbs 89.36 kg Age: 67 Gender: male BSA: 2.1 PROCEDURE(S) PERFORMED DC02-(10844)[facility] CLINICAL PROFILE AND INDICATIONS Indications: Valvular Disease Heart Failure: None Stress/Imaging Stress/Image Study Performed: No CAD Presentations: Other: valvular heart disease CONCLUSIONS Severe aortic valve stenosis. Long segment of stenosis noted in the left anterior descending artery and noted to have 0.85 by IFR and 0.69 by FFR. Stenosis noted in the first diagonal vessel, the first obtuse marginal branch, and the posterolateral vessel. RECOMMENDATIONS Discussing with surgeon regarding possible surgical AVR DESCRIPTION OF PROCEDURE The patient arrived to the procedure lab. The risks and benefits of the procedure as well as a full description of our services here and current unavailability of surgical backup were fully explained to the patient and/or their significant other prior to the catheterization. The Timeout was completed, verifying the correct patient and procedure. The patient's procedural site was prepped and draped in the usual fashion. Local anesthetic was given subcutaneously to right radial region with Lidocaine 2%. Using a modified Seldinger technique, arterial access was obtained via the right radial artery, a 6Fr sheath was inserted. Left Coronary Artery selective angiography was performed in multiple views using a 5 Fr. 4.0 [place] catheter. Right Coronary Artery selective angiography was then performed in multiple views using a 5 Fr. 4.0 [place] catheter. Right Coronary Artery selective angiography was then performed in multiple views using a 5 Fr. JR 5 catheter.The arterial sheath was pulled and a TR Band was applied for hemostasis CORONARY ANGIOGRAPHY DOMINANCE: Right Dominant LEFT HEART ASSESSMENT Left Ventricular Ejection Fraction: by Echo 60 % Normal LV wall motion Normal Left Ventricular systolic function LEFT MAIN: Mild calcification, No significant disease noted LEFT ANTERIOR DESCENDING ARTERY: There is a long mid left anterior descending artery lesion of at least 70% and a first diagonal vessel with 80% stenosis CIRCUMFLEX ARTERY: No significant disease noted OM 1: Proximal - 80% proximal obstructive stenosis RIGHT CORONARY ARTERY: Mild luminal irregularities RT PLV: 70% stenosis noted RT PDA: Mid - Mild luminal irregularities VALVE FINDINGS: Aortic Valve Calcification - moderate Aortic Valve Stenosis - severe COMPLICATIONS No Complications PROCEDURE MEDICATIONS Versed 1 mg IV Fentanyl 50 mcg IV Oxygen: 2 L/min via nasal cannula Aspirin (325mg) 1 Tabs PO 12/11/2022 09:01:35 Adenosine drip for FFR 748 ml/HR IV TOTAL 24.9 ML @ 12/11/2022 12:56:55 Heparin given IA 12/11/2022 12:07:59 Heparin 7000 unit(s) IV 12/11/2022 12:43:08 Verapamil 2.5mg, Ntg 100mcgs, 3000 units of Heparin given IA 12/11/2022 12:07:59 SUMMARY OF HEMODYNAMIC DATA Time AIR REST ECG 08:37:33 AO 145/66 (97) SA 12:13:54 Signed By Tristan Monteiro MD On 12/11/2022 13:55:42 Tristan Monteiro MD
--- NOTE | 2022-12-11 22:38 | CL.I_ITS ---
Patient Name: BRITTANI CEBALLOS Study Date: 12/11/2022 Performing: Michael Cabezas MD Ht: 71 inches 180.34 cm : 1955 Wt: 197.01 lbs 89.36 kg Age: 67 Gender: male BSA: 2.1 PROCEDURE(S) PERFORMED IC10-(43007)FFR, CORONARY OR GRAFT, INITIAL VESSEL CLINICAL PROFILE AND CO-MORBIDITIES Indications: Valvular Disease Heart Failure: None Stress/Imaging Stress/Image Study Performed: No CAD Presentations: Other: valvular heart disease CONCLUSIONS Mid LAD iFR 0.85, FFR 0.69 RECOMMENDATIONS Multivessel disease with hx of severe - consult CTS DESCRIPTION OF PROCEDURE The patient arrived to the procedure lab. The risks and benefits of the procedure as well as a full description of our services here and current unavailability of surgical backup were fully explained to the patient and/or their significant other prior to the catheterization. The Timeout was completed, verifying the correct patient and procedure. The patient's procedural site was prepped and draped in the usual fashion. Local anesthetic was given subcutaneously to right radial region with Lidocaine 2% Using a modified Seldinger technique,arterial access was obtained via the right radial artery, a 6Fr sheath was inserted. Left Coronary Artery selective angiography was performed in multiple views using a 5 Fr. 4.0 [place] catheter. Right Coronary Artery selective angiography was then performed in multiple views using a 5 Fr. 4.0 [place] catheter. Right Coronary Artery selective angiography was then performed in multiple views using a 5 Fr. JR 5 catheter. XB3 Guide catheter was inserted and engaged into the LCA. The FFR/iFR wire was inserted. Adenosine was then given per protocol. Pressures and FFR/iFR were then recorded. The FFR/iFR wire was then removed. The arterial sheath was pulled and a TR Band was applied for hemostasis INTERVENTION INFORMATION LESION SITE: LAD (Mid) PROCEDURE: FFR, iFR Lesion Devices: Cordis 6 Fr XB3.0 100cm Guide Catheter Telnic (volcano) Coronary FFR Wire COMPLICATIONS No Complications PROCEDURE MEDICATIONS Versed 1 mg IV Fentanyl 50 mcg IV Oxygen: 2 L/min via nasal cannula Aspirin (325mg) 1 Tabs PO 12/11/2022 09:01:35 Adenosine drip for FFR 748 ml/HR IV TOTAL 24.9 ML @ 12/11/2022 12:56:55 Heparin given IA 12/11/2022 12:07:59 Heparin 7000 unit(s) IV 12/11/2022 12:43:08 Verapamil 2.5mg, Ntg 100mcgs, 3000 units of Heparin given IA 12/11/2022 12:07:59 SUMMARY OF HEMODYNAMIC DATA Time AIR REST ECG 08:37:33 AO 145/66 (97) SA 12:13:54 AIR REST 21:32:11 Signed By Michael Cabezas MD On 12/18/2022 08:13:40 Michael Cabezas MD
[2022-12-12 08:15] LABS: ACT Activated Clotting Time 245 sec (74-137)
== END 2022-12-11 15:30 | disposition home or self-care (01) ==
LOC: CLSP 07:51
PROVIDERS: Nurse Practitioner Gerontology; PCP Physician Assistant; Referring Provider Internal Medicine Cardiovascular Disease; Visit Provider Internal Medicine Cardiovascular Disease
DX: I35.0 Nonrheumatic aortic (valve) stenosis (principal); E11.319 Type 2 diabetes mellitus with unspecified diabetic retinopathy without macular edema; I48.0 Paroxysmal atrial fibrillation; Z79.4 Long term (current) use of insulin; I25.10 Atherosclerotic heart disease of native coronary artery without angina pectoris; F41.9 Anxiety disorder, unspecified; F32.A Depression, unspecified; I10 Essential (primary) hypertension; Z95.0 Presence of cardiac pacemaker; Z79.899 Other long term (current) drug therapy; Z79.84 Long term (current) use of oral hypoglycemic drugs; Z87.891 Personal history of nicotine dependence
CPT/HCPCS: 36415; 71046; 80048; 85025; 85347; 93454; 93571; 99152; 99153; J0153; J7040; Q9967; C1769; C1887; C1894

== ENCOUNTER → 2023-03-16 | Outpatient (CLI) | payer BC, SELFPAY ==
[2023-03-16 12:33] LABS: Absolute Lymphocyte Count 1.27 X10^3/uL (0.83-4.51); Absolute Neutrophil Count 7.1 X10^3/uL (2.0-7.7); Basophil# 0.04 X10^3/uL; Basophil% 0.4 % (0-1); Eosinophil# 0.19 X10^3/uL; Hematocrit 34.5 % (40-54); Hemoglobin 10.5 g/dL (13.0-16.5); Lymphocyte # 1.27 X10^3/ul (0.83-4.51); Lymphocyte % 13.5 % (19-41); Mean Corp Hgb Conc 30.4 g/dL (32-36); Mean Corpuscular Hgb 26.3 pg (27.0-32.0); Mean Corpuscular Volume 86.3 fL (80-94); Mean Platelet Vol. 10.4 fl (6.2-12.0); Monocyte# 0.78 X10^3/uL; Monocyte% 8.3 % (0-10); NRBC Flagged by Analyzer 0 % (0-5); Neutrophil % 75.4 % (47-70); Platelet Count 164 K/mm3 (150-450); RBC Distribution Width CV 15.1 % (11.6-14.6); RBC Distribution Width SD 47.8 fl (35.1-43.9); White Blood Count 9.4 K/mm3 (4.4-11.0)
[2023-03-16 13:32] LABS: Anion Gap 5 (5-15); BUN 41 mg/dL (7-18); BUN/Creat Ratio 37.3 RATIO (10-20); Calcium,Total 9.1 mg/dL (8.5-10.1); Chloride 110 mmol/L (98-107); EST Glomerular Filtration Rate 71 mL/min (>60); Est Glom Filt Rate - Afr Amer 86 mL/min (>60); Glucose 161 mg/dL (74-106); Potassium 4.4 mmol/L (3.5-5.1); Sodium Level 142 mmol/L (136-145); Thyroid Stim Hormone (TSH) 1.06 uIU/mL (0.358-3.74)
== END | disposition home or self-care (01) ==
LOC: LAB 12:01
PROVIDERS: PCP Physician Assistant; Referring Provider Nurse Practitioner Gerontology; Visit Provider Nurse Practitioner Gerontology
DX: R53.83 Other fatigue (principal)
CPT/HCPCS: 36415; 80048; 84443; 85025

== ENCOUNTER → 2023-06-08 | Outpatient (CLI) | payer BC, MEDICAID, SELFPAY ==
[2023-06-08 12:27] LABS: Absolute Lymphocyte Count 1.32 X10^3/uL (0.83-4.51); Absolute Neutrophil Count 5.6 X10^3/uL (2.0-7.7); Basophil# 0.03 X10^3/uL; Basophil% 0.4 % (0-1); Eosinophil# 0.17 X10^3/uL; Eosinophils% 2.2 % (0-5); Hematocrit 38.7 % (40-54); Hemoglobin 12.7 g/dL (13.0-16.5); Lymphocyte # 1.32 X10^3/ul (0.83-4.51); Mean Corp Hgb Conc 32.8 g/dL (32-36); Mean Corpuscular Hgb 27.5 pg (27.0-32.0); Mean Corpuscular Volume 83.9 fL (80-94); Mean Platelet Vol. 9.8 fl (6.2-12.0); Monocyte# 0.66 X10^3/uL; Monocyte% 8.5 % (0-10); NRBC Flagged by Analyzer 0 % (0-5); Neutrophil # 5.58 X10^3/uL (2.7-7.7); Neutrophil % 71.6 % (47-70); Platelet Count 160 K/mm3 (150-450); RBC Distribution Width CV 15.7 % (11.6-14.6); RBC Distribution Width SD 48.2 fl (35.1-43.9); Red Blood Count 4.61 M/mm3 (4.6-6.2); White Blood Count 7.8 K/mm3 (4.4-11.0)
[2023-06-08 13:09] LABS: Anion Gap 5 (5-15); BUN 16 mg/dL (7-18); BUN/Creat Ratio 16.3 RATIO (10-20); Calcium,Total 9.1 mg/dL (8.5-10.1); Chloride 104 mmol/L (98-107); Creatinine, Serum 0.98 mg/dL (0.70-1.30); EST Glomerular Filtration Rate 81 mL/min (>60); Est Glom Filt Rate - Afr Amer 99 mL/min (>60); Glucose 210 mg/dL (74-106); Potassium 3.9 mmol/L (3.5-5.1); Sodium Level 137 mmol/L (136-145)
== END | disposition home or self-care (01) ==
LOC: LAB 11:50
PROVIDERS: PCP Family Medicine; Referring Provider Nurse Practitioner Gerontology; Visit Provider Nurse Practitioner Gerontology
DX: R53.83 Other fatigue (principal)
CPT/HCPCS: 36415; 80048; 84443; 85025